=== PATIENT | male | born 1935 | race Caucasian/White ===

== ENCOUNTER 2017-03-31 07:26 | Day surgery (SDC) | payer OTHER, BC ==
[2017-03-30 12:22] VITALS: BMI 25.4
[2017-03-31] MEDS ORDERED: PROPOFOL 20 ML ONE ×2 (08:19)
[2017-03-31] MEDS ORDERED: SUCCINYLCHOLINE CHLORIDE 200 MG/10 ML VIAL ONE (08:19)
[2017-03-31] MEDS ORDERED: MIDAZOLAM HCL 2 MG/2 ML SINGLE DOSE VIAL ONE (08:19)
[2017-03-31] MEDS ORDERED: HEPARIN NA (PORCINE) 5,000 UNITS/ML 1ML VIAL ONE ×2 (08:48→10:07)
[2017-03-31] MEDS ORDERED: LIDOCAINE HCL 1%, 10 MG/ML (20ML VIAL) ONE (08:48)
[2017-03-31] MEDS ORDERED: ceFAZolin SODIUM 1 GM VIAL IVPB ONE (09:25)
[2017-03-31] MEDS ORDERED: LIDOCAINE HCL 1%, 10 MG/ML (20ML VIAL) IJ ONE (09:31)
[2017-03-31] MEDS ORDERED: LIDOCAINE HCL 2% (20ML MULTI-DOSE VIAL) NR ONE (09:44)
[2017-03-31] MEDS ORDERED: ePHEDrine SULFATE 50 MG/1 ML AMPULE ONE (09:44)
[2017-03-31] MEDS ORDERED: PHENYLEPHRINE HCL 10 MG/1 ML SINGLE DOSE VIAL ONE (09:44)
[2017-03-31] MEDS ORDERED: ONDANSETRON 4 MG/2 ML VIAL IVPUSH PRN (10:56)
[2017-03-31] MEDS ORDERED: ACETAMINOPHEN 500 MG TABLET (FP) PO PRN (10:56)
[2017-03-31] MEDS ORDERED: LACTATED RINGERS SOLUTION 1,000 ML IV SCH (11:00)
--- NOTE | 2017-03-31 11:13 | OP ---
Operative Note - Note: Operative Date: 03/31/17 Pre-Operative Diagnosis: LLE claudication Operation: Aortogram, CO2 angiogram, Left sfa, popliteal artery atherectomy with DCB angioplasty Findings: Distal SFA and popliteal artery 80% stenosis Post-Operative Diagnosis: Same as Pre-op Surgeon: Zack Howard Anesthesia: Fractional Estimated Blood Loss (mls): 50 Operative Report Dictated: Yes
--- NOTE | 2017-03-31 11:14 | HP ---
Admitting History and Physical - Admission Chief Complaint: Left lower extremity clauidication on treadmill - Smoking History Smoking history: Never smoked Have you smoked in the past 12 months: No Aproximately how many cigarettes per day: 0 If you are a former smoker, when did you quit?: 1971 - Alcohol/Substance Use Hx Alcohol Use: No Home Medications - Allergies Allergies/Adverse Reactions: Allergies Allergy/AdvReac Type Severity Reaction Status Date / Time ibuprofen [From Motrin] Allergy Severe Verified 03/31/17 08:24 - Home Medications Home Medications: Ambulatory Orders Aspirin Coated [Ecotrin -] 81 mg PO DAILY #0 tablet.ec 06/20/13 Clopidogrel Bisulfate [Plavix -] 75 mg PO DAILY #0 tablet 06/20/13 Enalapril Maleate [Vasotec -] 20 mg PO DAILY #30 tablet 06/20/13 Folic Acid - 1 mg PO DAILY #0 tablet 06/20/13 Hydrochlorothiazide [Hctz -] 25 mg PO DAILY #0 tablet 06/20/13 Rosuvastatin [Crestor -] 10 mg PO HS #30 tablet 06/20/13 Metoprolol Tartrate [Lopressor -] 50 mg PO DAILY 03/03/15 Repaglinide [Prandin] 0.5 mg PO DAILY 03/03/15 Glucosamine HCl/Chondro Borges A [Glucosamine Chondroitin Cap] 1 each PO DAILY 04/29 Ubidecarenone [Co Q10] 60 mg PO DAILY 04/29/15 Physical Examination Vital Signs: Vital Signs Temperature 97.8 F 03/31/17 08:23 Pulse Rate 63 03/31/17 08:23 Respiratory Rate 20 03/31/17 08:23 Blood Pressure 141/73 03/31/17 08:23 O2 Sat by Pulse Oximetry (%) 98 03/31/17 08:17 Constitutional: Yes: Well Nourished Eyes: Yes: WNL HENT: Yes: WNL Neck: Yes: WNL Cardiovascular: Yes: WNL Respiratory: Yes: WNL Gastrointestinal: Yes: WNL Musculoskeletal: Yes: WNL Extremities: Yes: WNL Assessment/Plan LLE claudication 1. For CO2 angiogram today
[2017-03-31] MEDS ORDERED: oxyCODONE HCL 5 MG TABLET ONE (12:25)
[2017-03-31] MEDS ORDERED: oxyCODONE HCL 5 MG TABLET PO PRN ×2 (12:50)
--- NOTE | 2017-03-31 12:52 | OP ---
DATE OF OPERATION: 03/31/2017 PREOPERATIVE DIAGNOSIS: Left lower extremity claudication. POSTOPERATIVE DIAGNOSIS: Left lower extremity claudication. PROCEDURE PERFORMED: Aortogram, CO2 angiogram left lower extremity, superficial femoral artery popliteal, orbital atherectomy with drug-coated balloon angioplasty. FINDINGS: 80% stenosis of the distal superficial femoral artery and popliteal artery. SURGEON: Zack Lrema MD ANESTHESIA: Fractional. ESTIMATED BLOOD LOSS: 50 mL. INDICATIONS: The patient is a 78-year-old male that has prior stent placement in the superficial femoral artery from the proximal to the mid to distal portion and now complains of some claudication while he is on the treadmill after 10 minutes. Preoperative ultrasound showed that he had distal superficial femoral artery stenosis in to the popliteal. The patient came into ambulatory surgery. The patient was consented for the procedure understanding to all risks, benefits and alternatives. PROCEDURE IN DETAIL: He was taken to the operating room and once in the operating room he was placed on the operating table in the supine manner. The right and left groin were prepped and draped in a sterile surgical manner. We then injected 10 mL of lidocaine over the right common femoral artery. We then took our micropuncture needle and punctured the right common femoral artery, micropuncture rods were inserted. A 0.035 floppy guidewire was placed a traditional fibrin sheath was placed. We then went ahead and placed the wire up into the aorta followed by Omni Flush catheter. We then selectively cannulated the left common iliac artery and were able to place the wire down to the left common femoral artery. followed. We then went ahead and did a CO2 angiogram of the left lower extremity showing that the superficial femoral artery was patent, the stents were patent, but in the popliteal artery there was an 80% stenosis. The patient had 2-vessel runoff into the foot. At this point we placed a 0.013 guidewire into the superficial femoral artery. We then took out the Omni Flush catheter. We then placed a 6 x 45 crossover sheath. Heparin 5000 units IV were administered. We then went ahead and placed our wire down into the tibial artery and exchanged it for a Viper wire. We then opened the CSI orbital atherectomy device and performed orbital atherectomy of the distal superficial femoral artery and the popliteal artery. Once completed we then went ahead and used a 5 x 6, 4 x 8, and another 5 x 4 drug-coated balloon and performed angioplasty of that segment. Completion angiogram now showed that the distal superficial femoral artery and popliteal artery were patent. The patient had 2-vessel runoff into the foot with a palpable pulse. At this point we brought our sheath up and over and a StarClose device was successfully deployed in the right common femoral artery. Pressure was held for 5 minutes and there was no bleeding. Areas were then dried and Dermabond was placed. The patient tolerated the procedure well with no complications. The patient was transferred to the PACU in stable condition. ZACK LERMA DO [id number]
[2017-03-31 15:35] VITALS: BP 155/73; PULSE 79; TEMP 97.6
== END 2017-03-31 15:39 | disposition home or self-care (01) ==
LOC: JASU-SURG 07:26
PROVIDERS: ATTEND Surgery Vascular Surgery
PROC: 047L3Z1 Dilation of Left Femoral Artery using Drug-Coated Balloon, Percutaneous Approach (ICD-10-PCS; 2017-03-31)
PROC: 047N3Z1 Dilation of Left Popliteal Artery using Drug-Coated Balloon, Percutaneous Approach (ICD-10-PCS; principal; 2017-03-31 09:00)
DX: I70.212 Atherosclerosis of native arteries of extremities with intermittent claudication, left leg (principal)
CPT/HCPCS: 37225; C2623; 76000-TC; 94760; J1644

== ENCOUNTER 2017-08-13 18:19 | Emergency (ER) | payer OTHER, BC ==
[2017-08-13 18:31] VITALS: BP 156/75; PULSE 67; TEMP 97.7; BMI 25.1
--- NOTE | 2017-08-13 19:12 | PDOC ---
History of Present Illness - General History Source: Patient Exam Limitations: No Limitations <Magdi Valdovinos - Last Filed: 08/13/17 21:20> <Michelle Walker - Last Filed: 08/14/17 03:35> - General Chief Complaint: Lightheaded Stated Complaint: LIGHTHEADED Time Seen by Provider: 08/13/17 18:33 - History of Present Illness Initial Comments: 08/13/17 19:51 The patient is a 82 year old male with a significant past medical history of diabetes, HTN, HLD, CVA, SC (1991) s/p stents (1998) who presents to the ED with complaints of lightheadedness for 2 days. The patient reports he was recently diagnosed with a right sided ear infection last week and was given ear drops that ran out on Tuesday. Patient states on Tuesday night he turned his head quickly and saw a flash of light for several seconds before residing. Since then patient reports intermittent lightheadedness that he describes as feeling off balance. He states his lightheadedness is worsened with laying down. He reports that is fearful of falling. Patient reports a slight episode of nausea on that has since resided. Patient states he has had similar symptoms several years for which he took meclizine with effective results. Denies chest pain, palpitations, or shortness of breath. Denies fever or chills. Denies dysuria or change in urinary output. Denies abdominal pain, vomiting, or diarrhea. Denies any other symptoms. (Magdi Valdovinos) Past History <Magdi Valdovinos - Last Filed: 08/13/17 21:20> - Past Medical History Anemia: No Asthma: No Cancer: Yes (SKIN) Cardiac Disorders: Yes CVA: No COPD: No CHF: No Dementia: No Diabetes: Yes ("PRE-DIABETIC") GI Disorders: No Disorders: No HTN: Yes Hypercholesterolemia: Yes Kidney Stones: Yes Liver Disease: No Seizures: No Thyroid Disease: No - Surgical History Abdominal Surgery: No Appendectomy: No Cardiac Surgery: Yes (ANGIOPLASTY 02/16/2012 WITH STENT PLACEMENTS) Cholecystectomy: No Lung Surgery: No Neurologic Surgery: No Orthopedic Surgery: No - Suicide/Smoking/Psychosocial Hx Smoking Status: Yes Smoking History: Never smoked Have you smoked in the past 12 months: No Number of Cigarettes Smoked Daily: 0 If you are a former smoker, when did you quit?: 1972 Hx Alcohol Use: No Drug/Substance Use Hx: No Substance Use Type: None Hx Substance Use Treatment: No <Michelle Walker - Last Filed: 08/14/17 03:35> - Past Medical History Allergies/Adverse Reactions: Allergies Allergy/AdvReac Type Severity Reaction Status Date / Time No Known Allergies Allergy Verified 08/13/17 18:25 Home Medications: Ambulatory Orders Aspirin Coated [Ecotrin -] 81 mg PO DAILY #0 tablet.ec 06/20/13 Clopidogrel Bisulfate [Plavix -] 75 mg PO DAILY #0 tablet 06/20/13 Enalapril Maleate [Vasotec -] 20 mg PO DAILY #30 tablet 06/20/13 Folic Acid - 1 mg PO DAILY #0 tablet 06/20/13 Hydrochlorothiazide [Hctz -] 25 mg PO DAILY #0 tablet 06/20/13 Rosuvastatin [Crestor -] 10 mg PO HS #30 tablet 06/20/13 Repaglinide [Prandin] 0.5 mg PO DAILY 03/03/15 Glucosamine HCl/Chondro Borges A [Glucosamine Chondroitin Cap] 1 each PO DAILY 04/29 Ubidecarenone [Co Q10] 60 mg PO DAILY 04/29/15 Allopurinol [Zyloprim -] 100 mg PO DAILY 08/13/17 Felodipine [Felodipine ER] 10 mg PO DAILY 08/13/17 Meclizine HCl [Antivert -] 25 mg PO TID PRN #21 tablet 08/13/17 Metoprolol Succinate [Toprol Xl] 50 mg PO DAILY 08/13/17 Sitagliptin Phosphate [Januvia] 50 mg PO DAILY 08/13/17 Cardiac Specific PMH - Complaint Specific PMHX Pacemaker: No <Michelle Walker - Last Filed: 08/14/17 03:35> Review of Systems - Review of Systems Able to Perform ROS?: Yes All Other Systems: Reviewed and Negative <Magdi Valdovinos - Last Filed: 08/13/17 21:20> <Michelle Walker - Last Filed: 08/14/17 03:35> - Review of Systems Comments:: 08/13/17 19:52 CONSTITUTIONAL: No reported: Fever, Chills, Diaphoresis, Generalized Weakness, Malaise, Loss of Appetite HEENT: No reported: Rhinorrhea, Nasal Congestion, Throat Pain, Throat Swelling, Difficulty Swallowing, Mouth Swelling, Ear Pain, Eye Pain, Visual Changes CARDIOVASCULAR: No reported: Chest Pain, Syncope, Palpitations, Irregular Heart Rate, Lightheadedness, Peripheral Edema RESPIRATORY: No reported: Cough, Shortness of Breath, SOB with Exertion, Orthopnea, Wheezing , Stridor, Hemoptysis GASTROINTESTINAL: + nausea No reported: Abdominal pain, Abdominal Distension, Vomiting, Diarrhea, Constipation, Melena, Hematochezia GENITOURINARY: No reported: Dysuria, Frequency, Urgency, Hesitancy, Flank Pain, Genital Pain MUSCULOSKELETAL: No reported: Myalgia, Arthralgia, Joint Swelling, Back pain, Neck Pain SKIN: No reported: Rash, Itching, Pallor HEMEATOLOGIC/IMMUNOLOGIC: No reported: Easy Bleeding, Easy Bruising, Lymphadenopathy, Frequent infections ENDOCRINE: No reported: Unexplained Weight Gain, Unexplained Weight Loss, Heat Intolerance , Cold Intolerance NEUROLOGIC: + lightheadedness No reported: Headache, Focal Weakness, Paresthesias, Vertigo, Seizure, Mental Status Changes, Incontinence PSYCHIATRIC: No reported: Anxiety, Depression (Magdi Valdovinos) *Physical Exam <Magdi Valdovinos - Last Filed: 08/13/17 21:20> <Michelle Walker - Last Filed: 08/14/17 03:35> - Vital Signs Last Vital Signs Temp Pulse Resp BP Pulse Ox 97.7 F 67 16 156/75 95 08/13/17 18:20 08/13/17 18:20 08/13/17 18:20 08/13/17 18:20 08/13/17 18:20 - Physical Exam Comments: 08/13/17 19:52 GENERAL: The patient is awake, alert, and fully oriented, Nontoxic - in no acute distress. HEAD: Normocephalic, atraumatic. EYES: extraocular movements intact, sclera anicteric, conjunctiva clear. ENT: + mildly edematous right external auditory canals with mild erythematous dull tympanic membrane, partially obscured cerumen. Left ear with normal canal and tympanic membrane. Normal voice, Moist mucous membranes. NECK: Normal range of motion, supple LUNGS: Breath sounds equal, clear to auscultation bilaterally. No wheezes, no rhonchi, no rales. HEART: + Partially irregular extrasystole, without murmur, rub or gallop. ABDOMEN: Soft, nontender, normoactive bowel sounds. No guarding, no rebound.No CVA tenderness EXTREMITIES: Normal range of motion, no edema. No clubbing or cyanosis. No cords, erythema, or tenderness. NEUROLOGICAL: + gait grossly intact with preexisting weakness of the left lower extremity and pre existing gait halt with ataxia. left upper extremity, motor strength. Negative Rombergs. No facial assymetry, Normal speech, PSYCH: Normal mood, normal affect. SKIN: Warm, Dry, normal turgor, (Magdi Valdovinos) ED Treatment Course - LABORATORY CBC & Chemistry Diagram: 08/13/17 19:40 08/13/17 19:40 <Magdi Valdovinos - Last Filed: 08/13/17 21:20> - LABORATORY CBC & Chemistry Diagram: 08/13/17 19:40 08/13/17 19:40 <Michelle Walker - Last Filed: 08/14/17 03:35> - ADDITIONAL ORDERS Additional order review: Laboratory Results 08/13/17 19:40 Sodium 136 Potassium 3.9 Chloride 102 Carbon Dioxide 26 Anion Gap 8 BUN 34 H Creatinine 2.0 H Creat Clearance w eGFR 32.31 Random Glucose 151 H D Calcium 9.8 Total Bilirubin 0.8 D AST 26 ALT 20 Alkaline Phosphatase 91 Creatine Kinase 86 Troponin I < 0.03 L Total Protein 7.4 Albumin 4.2 08/13/17 19:40 RBC 5.16 MCV 89.4 MCHC 33.5 RDW 14.7 MPV 7.9 D Neutrophils % 71.6 Lymphocytes % 16.9 Monocytes % 5.0 Eosinophils % 5.5 H Basophils % 1.0 - RADIOLOGY Radiology Studies Ordered: Category Date Time Status HEAD CT WITHOUT CONTRAST [CT] Stat CT Scan 08/13/17 19:38 Taken Radiograph Interpretation: 08/13/17 21:[address] Impression: the cerebral atrophy. Chronic microvascular ischemic changes are noted. Chronic lacunar infractions. No acute intracranial hemorrhage or acute infarction. the visualized aspect of the paranasal sinuses and mastoid air cells are unremarkable. No acute fracture. Reported by: Imaging database reporting consultant (Magdi Valdovinos) - Medications Given in the ED: ED Medications Discontinued Medications Generic Name Dose Route Start Last Admin Trade Name Jonny PRN Reason Stop Dose Admin Meclizine HCl 25 mg 08/13/17 21:48 08/13/17 21:54 Antivert - PO 08/13/17 21:49 25 mg ONCE ONE Administration Progress Note <Magdi Valdovinos - Last Filed: 08/13/17 21:20> <Michelle Walker - Last Filed: 08/14/17 03:35> - Progress Note Progress Note: Documentation has been prepared under my direction and personally reviewed by me in its entirety. I attest that this documented accurately reflects all work, treatment, procedures and medical decision making performed by me. (Michelle Walker) Medical Decision Making <Magdi Valdovinos - Last Filed: 08/13/17 21:20> <Michelle Walker - Last Filed: 08/14/17 03:35> - Medical Decision Making As noted above, this 82-year-old man with a history of hypertension/CVA/ coronary artery disease/peripheral vasculopathy presents history of lightheadedness with positional change. Patient states he has had this in the past and meclizine was effective medication to resolve the symptoms. Likewise, symptoms began after patient finished a course of eardrops for presumed ear infection a few days ago. Although the patient has underlying gait problems status post CVA, he feels that his gait may be changed in recent days. Physical exam as noted above. According to his , there is no difference in his halting gait from previously 12-lead electrocardiogram is performed, shows sinus rhythm with occasional PACs ; it is unchanged from EKG tracing dated 02/16/2012. No evidence of acute ST or T-wave abnormalities. Because of patient's extensive history of coronary/cerebrovascular and peripheral vasculopathy, noncontrast head CT was performed to evaluate for acute intracranial process. No evidence of acute CVA/bleed or other pathology evident. CBC/chemistry panel/cardiac profile were not significantly changed from similar lab work performed in the last few years. Clinical presentation most consistent with mild vertigo of peripheral origin. Meclizine 25 mg was administered and prescription for this medication transmitted to pharmacy. Patient should follow-up with his ear nose and throat doctor, Dr. Bowles within the next 3 days. He should return to the emergency room if he has severe, persistent symptoms (Michelle Walker) *DC/Admit/Observation/Transfer <Magdi Valdovinos - Last Filed: 08/13/17 21:20> <Michelle Walker - Last Filed: 08/14/17 03:35> Diagnosis at time of Disposition: Positional vertigo Qualifiers: Laterality: right Qualified Code(s): H81.11 - Benign paroxysmal vertigo, right ear - Discharge Dispostion Disposition: HOME Condition at time of disposition: Stable - Prescriptions Prescriptions: Meclizine HCl [Antivert -] 25 mg PO TID PRN #21 tablet PRN Reason: Vertigo - Referrals Referrals: Yesi Sim MD [Primary Care Provider] - Luis Bowles MD [Staff Physician] - 3 days - Patient Instructions Printed Discharge Instructions: DI for Benign Paroxysmal Positional Vertigo Additional Instructions: Antivert 25 mg up to 3 times a day as needed Continue other medications as prescribed Follow-up with Dr. Bowles within the next 3 days Return to ER if you have worsening of your symptoms - Post Discharge Activity - Attestations Scribe Attestion: 08/13/17 19:52 Documentation prepared by Magdi Valdovinos, acting as bacteriologist medical for Michelle Walker MD (Magdi Valdovinos)
[2017-08-13 20:01] LABS: EOSINOPHIL 5.5 % (0-4.5); MCHC 33.5 g/dl (32.0-35.9); MEAN CELL VOLUME 89.4 fl (80-96); MEAN PLT VOLUME 7.9 fl (7.5-11.1); NEUTROPHILS 71.6 % (42.8-82.8); PLATELET COUNT 239 K/MM3 (134-434); RDW 14.7 % (11.9-15.9); WHITE BLOOD COUNT 9.9 K/mm3 (4.0-10.8)
[2017-08-13 20:09] LABS: ALBUMIN 4.2 g/dl (3.5-5.0); ALK PHOS 91 U/L (32-92); ANION GAP 8 (8-16); BILIRUBIN,TOTAL 0.8 mg/dl (0.2-1.0); CALCIUM 9.8 mg/dl (8.4-10.2); CO2 26 mmol/L (22-28); CPK 86 IU/L (39-308); GLUCOSE,RANDOM 151 mg/dl (74-106); SGOT/AST 26 U/L (10-42); SGPT/ALT 20 U/L (10-40); TOT PROT 7.4 g/dl (6.4-8.3)
[2017-08-13 20:20] LABS: TROPONIN I (DFP) < 0.03 ng/ml (0.03-0.50)
[2017-08-13] MEDS ORDERED: MECLIZINE HCL 25 MG TABLET (FP) PO ONE (21:48)
[2017-08-13] MEDS ORDERED: MECLIZINE HCL 25 MG TABLET (FP) ONE (21:53)
--- NOTE | 2017-08-14 17:46 | EKG ---
Test Reason : Blood Pressure : / mmHG Vent. Rate : 067 BPM Atrial Rate : 067 BPM P-R Int : 186 ms QRS Dur : 088 ms QT Int : 404 ms P-R-T Axes : 052 010 048 degrees QTc Int : 426 ms SINUS RHYTHM WITH PREMATURE ATRIAL COMPLEXES NONSPECIFIC T WAVE ABNORMALITY WHEN COMPARED WITH ECG OF 16-FEB-2012 11:16, PREMATURE ATRIAL COMPLEXES ARE NOW PRESENT NONSPECIFIC T WAVE ABNORMALITY NOW EVIDENT IN INFERIOR LEADS NONSPECIFIC T WAVE ABNORMALITY NOW EVIDENT IN LATERAL LEADS Confirmed by MARCOS PHILLIPS MD ([id number]) on 08/14/2017 5:45:42 PM Referred By: Lauren CORONADO Confirmed By:MARCOS PHILLIPS MD
== END 2017-08-13 21:58 | disposition home or self-care (01) ==
LOC: FER 18:19 → SUPCPDRO 18:19 → FER 21:58
DX: H81.11 Benign paroxysmal vertigo, right ear (principal); I10 Essential (primary) hypertension; I25.2 Old myocardial infarction; E78.5 Hyperlipidemia, unspecified; R73.03 Prediabetes; Z95.5 Presence of coronary angioplasty implant and graft; Z86.73 Personal history of transient ischemic attack (TIA), and cerebral infarction without residual deficits; Z79.82 Long term (current) use of aspirin; Z85.828 Personal history of other malignant neoplasm of skin
CPT/HCPCS: 36415; 70450-TC; 80053; 82550; 84484; 85025; 93005; 99283-25

== ENCOUNTER 2020-05-08 04:38 | Day surgery (SDC) | payer OTHER, BC ==
[2020-05-07 14:07] VITALS: BMI 25.2
[2020-05-08 10:29] LABS: HEMATOCRIT 40.8 % (35.4-49); HEMOGLOBIN 13.3 GM/dL (11.7-16.9); MCH 29.9 pg (25.7-33.7); MCHC 32.5 g/dl (32.0-35.9); MEAN PLT VOLUME 8.1 fl (7.5-11.1); PLATELET COUNT 165 K/MM3 (134-434); RBC 4.44 M/mm3 (4.00-5.60); RDW 15.8 % (11.9-15.9); WHITE BLOOD COUNT 8.1 K/mm3 (4.0-10.0)
[2020-05-08 10:36] LABS: INR 0.93 (0.83-1.09)
[2020-05-08 10:54] LABS: ALBUMIN 3.8 g/dl (3.4-5.0); BILIRUBIN,TOTAL 0.6 mg/dL (0.2-1); BLOOD UREA NITROGEN 43.5 mg/dL (7-18); CALCIUM 9.1 mg/dL (8.5-10.1); CREATININE 2.2 mg/dL (0.55-1.3); POTASSIUM 4.2 mmol/L (3.5-5.1)
[2020-05-08] MEDS ORDERED: HEPARIN NA (PORCINE) 5,000 UNITS/ML 1ML VIAL ONE (14:02)
[2020-05-08] MEDS ORDERED: LIDOCAINE HCL 1%, 10 MG/ML (20ML VIAL) ONE (14:02)
--- NOTE | 2020-05-08 14:50 | HP ---
Admitting History and Physical - Admission Chief Complaint: left lower extremity claudication less than one block History Source: Patient Limitations to Obtaining History: No Limitations - Smoking History Smoking history: Former smoker Have you smoked in the past 12 months: No Aproximately how many cigarettes per day: 0 If you are a former smoker, when did you quit?: 1971 - Alcohol/Substance Use Hx Alcohol Use: No Home Medications - Allergies Allergies/Adverse Reactions: Allergies Allergy/AdvReac Type Severity Reaction Status Date / Time No Known Allergies Allergy Verified 05/08/20 10:50 - Home Medications Home Medications: Ambulatory Orders Aspirin Coated [Ecotrin -] 81 mg PO DAILY #0 tablet.ec 06/20/13 Clopidogrel Bisulfate [Plavix -] 75 mg PO DAILY #0 tablet 06/20/13 Folic Acid - 1 mg PO DAILY #0 tablet 06/20/13 Hydrochlorothiazide [Hctz -] 25 mg PO DAILY #0 tablet 06/20/13 Rosuvastatin [Crestor -] 10 mg PO HS #30 tablet 06/20/13 Glucosamine HCl/Chondro Borges A [Glucosamine Chondroitin Cap] 1 each PO DAILY 04/29/15 Ubidecarenone [Co Q10] 60 mg PO DAILY 04/29/15 Allopurinol [Zyloprim -] 100 mg PO DAILY 08/13/17 Felodipine [Felodipine ER] 10 mg PO DAILY 08/13/17 Metoprolol Succinate [Toprol Xl] 50 mg PO DAILY 08/13/17 Sitagliptin Phosphate [Januvia] 50 mg PO DAILY 08/13/17 Enalapril Maleate [Vasotec -] 20 mg PO DAILY 04/18/18 Pioglitazone HCl/Metformin HCl [Pioglitazone-Metformin 15-500] 1 each PO DAILY 05/07/20 Review of Systems - Review of Systems Constitutional: reports: No Symptoms Eyes: reports: No Symptoms HENT: reports: No Symptoms Neck: reports: No Symptoms Cardiovascular: reports: No Symptoms Respiratory: reports: No Symptoms Gastrointestinal: reports: No Symptoms Genitourinary: reports: No Symptoms Breasts: reports: No Symptoms Reported Musculoskeletal: reports: No Symptoms Integumentary: reports: No Symptoms Neurological: reports: No Symptoms Endocrine: reports: No Symptoms Hematology/Lymphatic: reports: No Symptoms Psychiatric: reports: No Symptoms Physical Examination Vital Signs: Vital Signs Temperature 97.1 F L 05/08/20 09:54 Pulse Rate 56 L 05/08/20 09:54 Respiratory Rate 20 05/08/20 09:54 Blood Pressure 145/50 L 05/08/20 09:54 O2 Sat by Pulse Oximetry (%) 99 05/08/20 09:54 Constitutional: Yes: Well Nourished, No Distress, Calm Eyes: Yes: WNL, Conjunctiva Clear, EOM Intact HENT: Yes: WNL, Atraumatic, Normocephalic Neck: Yes: WNL, Supple, Trachea Midline Cardiovascular: Yes: WNL, Regular Rate and Rhythm Respiratory: Yes: WNL, Regular, CTA Bilaterally Gastrointestinal: Yes: WNL, Normal Bowel Sounds Musculoskeletal: Yes: WNL Extremities: Yes: WNL Edema: No Peripheral Pulses WNL: No Integumentary: Yes: WNL Neurological: Yes: WNL, Alert, Oriented ...Motor Strength: WNL Psychiatric: Yes: WNL Labs: CBC, BMP 05/08/20 09:35 05/08/20 09:35 Problem List - Problems (1) Claudication of left lower extremity Assessment/Plan: for left lower extremity angiogram today Zack Howard DO Code(s): I73.9 - PERIPHERAL VASCULAR DISEASE, UNSPECIFIED
[2020-05-08] MEDS ORDERED: MIDAZOLAM HCL 2 MG/2 ML SINGLE DOSE VIAL ONE (14:53)
[2020-05-08] MEDS ORDERED: ceFAZolin SODIUM 1 GM VIAL IVPB ONE (15:15)
[2020-05-08] MEDS ORDERED: LIDOCAINE HCL 1%, 10 MG/ML (20ML VIAL) NR ONE (15:32)
--- NOTE | 2020-05-08 16:39 | OP ---
Operative Note - Note: Operative Date: 05/08/20 Pre-Operative Diagnosis: Left lower extremity claudication Operation: CO2 Aortogram, LLE angiogram, SFA angioplasty, Posterior tibial artery angioplasty Findings: SFA stent stenosis PT stenosis Post-Operative Diagnosis: Same as Pre-op Surgeon: Zack Howard Anesthesia: MAC Estimated Blood Loss (mls): 50
[2020-05-08] MEDS ORDERED: CLOPIDOGREL BISULFATE 75 MG TABLET (FP) PO ONE (16:42)
[2020-05-08] MEDS ORDERED: CLOPIDOGREL BISULFATE 75 MG TABLET (FP) ONE (16:43)
[2020-05-08] MEDS ORDERED: oxyCODONE HCL 5 MG TABLET ONE (17:30)
[2020-05-08] MEDS ORDERED: oxyCODONE HCL 5 MG TABLET PO ONE (17:32)
[2020-05-08 19:34] VITALS: BP 135/65; PULSE 61; TEMP 97.3
--- NOTE | 2020-05-20 10:20 | OP ---
DATE OF OPERATION: 05/08/2020 PREOPERATIVE DIAGNOSIS: Left lower extremity claudication. POSTOPERATIVE DIAGNOSIS: Left lower extremity claudication. PROCEDURE: CO2 aortogram, left lower extremity angiogram, superficial femoral artery angioplasty, posterior tibial artery angioplasty. FINDINGS: SFA stent stenosis, posterior tibial artery stenosis. SURGEON: Zack Lerma DO ANESTHESIA: MAC. BLOOD LOSS: 50 mL Patient is an 84-year-old that has less than 1 block claudication. On his preoperative ultrasound it showed that his stent is 80% to 90% stenosed and he also has some tibial disease. Patient was cleared by medicine and cardiology. Patient was found to be COVID-19 negative. Patient then came into ambulatory surgery. Patient was consented for the procedure understanding all risks, benefits and alternatives, was then brought to the operating room. Once in the operating room he was laid on the operating table in the supine manner and the area of the right and left groin was prepped and draped in a sterile surgical manner. We then injected 10 mL of lidocaine 1% over the right common femoral artery. We then placed used a micropuncture needle and punctured the artery. Micropuncture wire was inserted. Micropuncture sheath was inserted and a traditional 5-[place] sheath was placed. We then placed a 0.035 floppy guidewire up into the aorta followed by Omni Flush catheter. We then shot an aortogram by hand injection showing that the aorta and the iliac arteries were without any disease. We then used our 0.035 floppy guidewire, went up and over to the left common femoral artery and our Omni Flush catheter followed. We then shot an angiogram of the left lower extremity by hand injection showing that the common femoral artery, the profunda and the proximal SFA were patent, but the distal SFA with a stent had an 80% to 90% stenosis and below the knee the posterior tibial artery had a 70% to 80% stenosis. All of these images were done with CO2 as a CO2 angiogram was done. We then went ahead and placed a 0.035 stiff guidewire into the SFA, removed our Omni Flush catheter and placed a 6 x 45 Crossover sheath. Heparin 5000 units were administered. We then went ahead and used our 0.035 floppy guidewire and brought it down to the stent and using a Quick-Cross catheter we were able to cross our stents and place our wire into the posterior tibial artery. At this point we then went ahead and used a 6 x 10 Ultraverse balloon and performed angioplasty of the SFA stent. Completion angiogram now showed that the SFA stent was patent. We then went ahead and exchanged our wire for a Epic Director wire and using a 2.5 x 8 Ultraverse balloon, which was a 0.014 balloon, we were able to perform angioplasty of the posterior tibial artery. Completion angiogram now showed that the SFA stent was patent, the posterior tibial artery was patent and there was good brisk flow into the foot. At this point we brought our sheath up and over. StarClose device was successfully deployed in the right common femoral artery. Pressure was held for 5 minutes after which there was no more bleeding. The area was wet and dried and Dermabond was placed. Patient tolerated the procedure with no complications. Patient transferred to PACU in stable condition. ZACK LERMA DO [id number]
== END 2020-05-08 19:30 | disposition home or self-care (01) ==
LOC: JASU-SURG 04:38
PROVIDERS: ATTEND Surgery Vascular Surgery
PROC: 047S3ZZ Dilation of Left Posterior Tibial Artery, Percutaneous Approach (ICD-10-PCS; 2020-05-08)
PROC: 047L3ZZ Dilation of Left Femoral Artery, Percutaneous Approach (ICD-10-PCS; principal; 2020-05-08 14:00)
DX: I70.212 Atherosclerosis of native arteries of extremities with intermittent claudication, left leg (principal); E11.9 Type 2 diabetes mellitus without complications; Z79.4 Long term (current) use of insulin; I25.10 Atherosclerotic heart disease of native coronary artery without angina pectoris
CPT/HCPCS: 37224; 37228; C1725; 36415; 76000-TC-FY; 80053; 85027; 85610; 94760; J1644

== ENCOUNTER 2020-08-16 07:23 | Inpatient (IN) | payer OTHER, BC ==
[2020-08-16 07:37] VITALS: BMI 22.9
[2020-08-16 08:30] LABS: HEMATOCRIT 45.6 % (35.4-49); HEMOGLOBIN 14.9 GM/dl (11.7-16.9); MCH 30.8 pg (25.7-33.7); MCHC 32.7 g/dl (32.0-35.9); MEAN CELL VOLUME 94.3 fl (80-96); MEAN PLT VOLUME 8.8 fl (7.5-11.1); PLATELET COUNT 179 K/MM3 (134-434); RBC 4.84 M/mm3 (4.00-5.60); RDW 15.7 % (11.9-15.9); WHITE BLOOD COUNT 14.4 K/mm3 (4.0-10.8)
[2020-08-16 08:36] LABS: INR 1.07 (0.82-1.09); PROTHROMBIN TIME (PATIENT) 11.9 SEC (10.2-13.0)
[2020-08-16 08:38] LABS: ALBUMIN 3.4 g/dl (3.4-5.0); BILIRUBIN,TOTAL 1.1 mg/dl (0.2-1); CALCIUM 8.8 mg/dl (8.5-10); CREATININE 1.7 mg/dl (0.55-1.3); POTASSIUM 3.8 mmol/L (3.5-5.1); TOT PROT 6.2 g/dl (6.4-8.2)
[2020-08-16] MEDS ORDERED: ENALAPRIL MALEATE 10 MG TABLET PO ONE (08:41)
[2020-08-16] MEDS ORDERED: SODIUM CHLORIDE 1,000 ML IV SCH ×2 (08:45→22:00)
[2020-08-16] MEDS ORDERED: ASPIRIN 81 MG CHEWABLE TABLETS PO ONE (09:03)
[2020-08-16] MEDS ORDERED: POTASSIUM CHLORIDE TABS 10 MEQ TABLET.ER (FP) PO ONE (09:08)
[2020-08-16] MEDS ORDERED: POTASSIUM CHLORIDE ORAL LIQUID 20 MEQ/15 ML PO ONE (09:09)
[2020-08-16] MEDS ORDERED: ATORVASTATIN CA 80 MG TABLET (FP) PO ONE (09:09)
[2020-08-16] MEDS ORDERED: CLOPIDOGREL BISULFATE 300 MG TABLET PO ONE (09:09)
[2020-08-16] MEDS ORDERED: ATORVASTATIN CA 80 MG TABLET (FP) ONE (09:16)
[2020-08-16] MEDS ORDERED: CLOPIDOGREL BISULFATE 300 MG TABLET ONE (09:17)
[2020-08-16 09:32] LABS: PLATELET ESTIMATE ADEQUATE
[2020-08-16] MEDS ORDERED: NITROGLYCERIN 2% OINTMENT - 1GM PACKET TD STA (09:39)
[2020-08-16] MEDS ORDERED: MAGNESIUM 1GM/D5W - 1 GM/100 ML IVPB IVPB ONE (09:41)
[2020-08-16] MEDS ORDERED: NITROGLYCERIN 2% OINTMENT - 1GM PACKET TD ONE (09:41)
[2020-08-16 15:43] LABS: EPITHELIAL CELLS RARE /hpf
[2020-08-16] MEDS ORDERED: LABETALOL HCL 5 MG/1 ML (100MG/20 ML VIAL) IVPUSH ONE (19:17)
[2020-08-16] MEDS: INSULIN SLIDING SCALE (NOVOLOG) 1 VIAL SQ SCH (22:25)
[2020-08-16 22:47] LABS: BASO % 0.7 % (0-2.0); EOS % 0.5 % (0-4.5); HEMATOCRIT 39.3 % (35.4-49); HEMOGLOBIN 12.8 GM/dL (11.7-16.9); LYMPH % 9.5 % (8-40); MCH 30.3 pg (25.7-33.7); MCHC 32.6 g/dl (32.0-35.9); MEAN CELL VOLUME 92.9 fl (80-96); MEAN PLT VOLUME 8.4 fl (7.5-11.1); MONO % 7.1 % (3.8-10.2); NEUT % 82.2 % (42.8-82.8); PLATELET COUNT 155 K/MM3 (134-434); RBC 4.24 M/mm3 (4.00-5.60); WHITE BLOOD COUNT 10.4 K/mm3 (4.0-10.0)
[2020-08-17] MEDS ORDERED: MELATONIN 5 MG TABLETS PO ONE (00:43)
[2020-08-17] MEDS: INSULIN SLIDING SCALE (NOVOLOG) 1 VIAL SQ SCH ×4 (06:29→21:33)
[2020-08-17] MEDS: HEPARIN NA (PORCINE) 5,000 UNITS/ML 1ML VIAL SQ SCH ×3 (06:39→21:32)
[2020-08-17] MEDS ORDERED: LABETALOL HCL 5 MG/1 ML (100MG/20 ML VIAL) IVPUSH ONE (06:45)
[2020-08-17 07:18] LABS: BASO % 0.7 % (0-2.0); EOS % 2.2 % (0-4.5); HEMATOCRIT 39.4 % (35.4-49); LYMPH % 13.1 % (8-40); MCH 30.5 pg (25.7-33.7); MEAN CELL VOLUME 92.5 fl (80-96); MEAN PLT VOLUME 8.3 fl (7.5-11.1); MONO % 8.4 % (3.8-10.2); NEUT % 75.6 % (42.8-82.8); PLATELET COUNT 145 K/MM3 (134-434); RBC 4.26 M/mm3 (4.00-5.60); RDW 16.5 % (11.9-15.9); WHITE BLOOD COUNT 9.1 K/mm3 (4.0-10.0)
[2020-08-17 07:38] LABS: POTASSIUM 3.9 mmol/L (3.5-5.1)
[2020-08-17 07:41] LABS: ALBUMIN 2.6 g/dl (3.4-5.0); CALCIUM 8.2 mg/dL (8.5-10.1)
[2020-08-17 07:45] LABS: CREATININE 1.6 mg/dL (0.55-1.3); PHOSPHOROUS 2.1 mg/dL (2.5-4.9)
[2020-08-17 07:46] LABS: BILIRUBIN,TOTAL 1.2 mg/dL (0.2-1)
[2020-08-17 07:48] LABS: CHOLESTEROL 113 mg/dL (50-200); TOT PROT 5.3 g/dl (6.4-8.2)
[2020-08-17 07:49] LABS: TRIGLYCERIDES 99 mg/dL (0-150)
[2020-08-17 07:50] LABS: LDL CHOLESTEROL (ONLY SJRH) 61 mg/dL (5-100)
[2020-08-17 07:51] LABS: HDL CHOLESTEROL 45 mg/dL (40-60)
[2020-08-17] MEDS ORDERED: MAGNESIUM SULF 50% (8.12 MEQ/2 ML-1 GM VIAL) IVPB ONE (08:49)
[2020-08-17] MEDS ORDERED: MAGNESIUM 1GM/D5W - 1 GM/100 ML IVPB IVPB ONE (09:00)
[2020-08-17] MEDS ORDERED: SODIUM PHOSPHATE - 10 MM in SODIUM CHLORIDE 250 ML IVPB ONE (09:00)
[2020-08-17] MEDS: ENALAPRIL MALEATE 10 MG TABLET PO SCH (09:29)
[2020-08-17] MEDS: ASPIRIN 81 MG CHEWABLE TABLETS PO SCH (09:29)
[2020-08-17] MEDS: CLOPIDOGREL BISULFATE 75 MG TABLET (FP) PO SCH (09:29)
[2020-08-17] MEDS: ALLOPURINOL 300 MG TABLET (FP) PO SCH (09:29)
[2020-08-18] MEDS: INSULIN SLIDING SCALE (NOVOLOG) 1 VIAL SQ SCH ×4 (06:19→21:55)
[2020-08-18] MEDS: ENALAPRIL MALEATE 10 MG TABLET PO SCH ×2 (06:20→09:17)
[2020-08-18] MEDS: HEPARIN NA (PORCINE) 5,000 UNITS/ML 1ML VIAL SQ SCH ×3 (06:20→21:54)
[2020-08-18 07:36] LABS: EOS % 4.7 % (0-4.5); HEMATOCRIT 41.8 % (35.4-49); HEMOGLOBIN 13.6 GM/dL (11.7-16.9); LYMPH % 15.9 % (8-40); MCH 29.7 pg (25.7-33.7); MCHC 32.6 g/dl (32.0-35.9); MEAN CELL VOLUME 91.3 fl (80-96); MEAN PLT VOLUME 8.6 fl (7.5-11.1); MONO % 8.4 % (3.8-10.2); PLATELET COUNT 166 K/MM3 (134-434); RBC 4.58 M/mm3 (4.00-5.60); RDW 16.3 % (11.9-15.9); WHITE BLOOD COUNT 9.1 K/mm3 (4.0-10.0)
[2020-08-18 07:55] LABS: POTASSIUM 4.2 mmol/L (3.5-5.1)
[2020-08-18 07:57] LABS: ALBUMIN 2.8 g/dl (3.4-5.0); BLOOD UREA NITROGEN 27.6 mg/dL (7-18); CALCIUM 8.9 mg/dL (8.5-10.1)
[2020-08-18 08:01] LABS: CREATININE 1.8 mg/dL (0.55-1.3); PHOSPHOROUS 2.3 mg/dL (2.5-4.9)
[2020-08-18 08:02] LABS: BILIRUBIN,TOTAL 0.8 mg/dL (0.2-1)
[2020-08-18] MEDS ORDERED: SODIUM PHOSPHATE - 0 MM in SODIUM CHLORIDE 250 ML IVPB ONE (08:20)
[2020-08-18] MEDS ORDERED: metoPROLOL SUCCINATE 25 MG TAB.SR.24H (FP) PO ONE (08:45)
[2020-08-18] MEDS: ASPIRIN 81 MG CHEWABLE TABLETS PO SCH (09:16)
[2020-08-18] MEDS: CLOPIDOGREL BISULFATE 75 MG TABLET (FP) PO SCH (09:17)
[2020-08-18] MEDS: ALLOPURINOL 300 MG TABLET (FP) PO SCH (09:17)
[2020-08-18] MEDS ORDERED: SODIUM PHOSPHATE - 10 MM in SODIUM CHLORIDE 250 ML IVPB ONE (09:30)
[2020-08-18] MEDS ORDERED: amLODIPine BESYLATE 5 MG TABLET (FP) PO ONE (14:21)
[2020-08-18] MEDS: metoPROLOL SUCCINATE 25 MG TAB.SR.24H (FP) PO SCH (21:54)
[2020-08-19] MEDS: INSULIN SLIDING SCALE (NOVOLOG) 1 VIAL SQ SCH ×4 (06:00→22:09)
[2020-08-19] MEDS: HEPARIN NA (PORCINE) 5,000 UNITS/ML 1ML VIAL SQ SCH ×3 (06:02→21:53)
[2020-08-19 07:21] LABS: BASO % 1.1 % (0-2.0); EOS % 6.4 % (0-4.5); HEMATOCRIT 39.6 % (35.4-49); HEMOGLOBIN 13.2 GM/dL (11.7-16.9); MCH 30.3 pg (25.7-33.7); MCHC 33.3 g/dl (32.0-35.9); MEAN CELL VOLUME 90.7 fl (80-96); MEAN PLT VOLUME 8.5 fl (7.5-11.1); MONO % 7.7 % (3.8-10.2); NEUT % 66.8 % (42.8-82.8); PLATELET COUNT 166 K/MM3 (134-434); RBC 4.36 M/mm3 (4.00-5.60); RDW 16.2 % (11.9-15.9); WHITE BLOOD COUNT 8.1 K/mm3 (4.0-10.0)
[2020-08-19 07:25] LABS: POTASSIUM 3.7 mmol/L (3.5-5.1)
[2020-08-19 07:31] LABS: ALBUMIN 2.5 g/dl (3.4-5.0); CALCIUM 8.4 mg/dL (8.5-10.1)
[2020-08-19 07:32] LABS: MAGNESIUM 1.7 mg/dL (1.8-2.4)
[2020-08-19 07:35] LABS: PHOSPHOROUS 3.3 mg/dL (2.5-4.9)
[2020-08-19 07:36] LABS: BILIRUBIN,TOTAL 0.7 mg/dL (0.2-1); CREATININE 1.7 mg/dL (0.55-1.3); TOT PROT 5.3 g/dl (6.4-8.2)
[2020-08-19] MEDS ORDERED: MAGNESIUM SULF 50% (8.12 MEQ/2 ML-1 GM VIAL) IVPB ONE (08:28)
[2020-08-19] MEDS: MAGNESIUM OXIDE 400 MG TABLET (FP) PO SCH ×3 (08:55→21:53)
[2020-08-19] MEDS: KCL 10 MEQ IVPB 10 MEQ/100 ML INFUS.BAG IVPB SCH ×3 (08:56→14:23)
[2020-08-19] MEDS: amLODIPine BESYLATE 5 MG TABLET (FP) PO SCH ×3 (08:57→16:38)
[2020-08-19] MEDS ORDERED: REGADENOSON 0.4 MG/5 ML PRE-FILLED SYRINGE IVPUSH ONE ×2 (09:00→12:02)
[2020-08-19] MEDS: ENALAPRIL MALEATE 10 MG TABLET PO SCH ×2 (09:02→16:56)
[2020-08-19] MEDS: metoPROLOL SUCCINATE 25 MG TAB.SR.24H (FP) PO SCH ×2 (09:03→21:53)
[2020-08-19] MEDS: CLOPIDOGREL BISULFATE 75 MG TABLET (FP) PO SCH (11:10)
[2020-08-19] MEDS: ASPIRIN 81 MG CHEWABLE TABLETS PO SCH (11:10)
[2020-08-19] MEDS: ALLOPURINOL 300 MG TABLET (FP) PO SCH (11:11)
[2020-08-19] MEDS ORDERED: ENALAPRIL MALEATE 10 MG TABLET PO ONE (14:45)
[2020-08-19] MEDS ORDERED: amLODIPine BESYLATE 5 MG TABLET (FP) PO ONE (16:29)
[2020-08-20] MEDS: INSULIN SLIDING SCALE (NOVOLOG) 1 VIAL SQ SCH ×2 (06:05→12:17)
[2020-08-20] MEDS: HEPARIN NA (PORCINE) 5,000 UNITS/ML 1ML VIAL SQ SCH (06:15)
[2020-08-20] MEDS ORDERED: amLODIPine BESYLATE 10 MG TABLET (FP) PO SCH (07:29)
[2020-08-20 08:07] VITALS: BP 164/72; PULSE 63; TEMP 97.9
[2020-08-20] MEDS ORDERED: TAMSULOSIN HCL 0.4 MG CAP PO SCH (08:30)
[2020-08-20] MEDS: metoPROLOL SUCCINATE 25 MG TAB.SR.24H (FP) PO SCH (09:15)
[2020-08-20] MEDS: ASPIRIN 81 MG CHEWABLE TABLETS PO SCH (09:15)
[2020-08-20] MEDS: MAGNESIUM OXIDE 400 MG TABLET (FP) PO SCH (09:15)
[2020-08-20] MEDS: ALLOPURINOL 300 MG TABLET (FP) PO SCH (09:15)
[2020-08-20] MEDS: CLOPIDOGREL BISULFATE 75 MG TABLET (FP) PO SCH (09:15)
[2020-08-20] MEDS ORDERED: ENALAPRIL MALEATE 10 MG TABLET PO SCH (10:00)
[2020-08-20] MEDS ORDERED: ATORVASTATIN CA 10 MG TABLET (FP) PO SCH (22:00)
== END 2020-08-20 14:25 | disposition home health service (06) | DRG 281 ==
LOC: FER 07:23 → J4W 17:00
PROVIDERS: ADMIT Internal Medicine; ATTEND Internal Medicine
DX: I21.4 Non-ST elevation (NSTEMI) myocardial infarction (principal); I16.1 Hypertensive emergency; I69.359 Hemiplegia and hemiparesis following cerebral infarction affecting unspecified side; D72.829 Elevated white blood cell count, unspecified; I13.10 Hypertensive heart and chronic kidney disease without heart failure, with stage 1 through stage 4 chronic kidney disease, or unspecified chronic kidney disease; N18.9 Chronic kidney disease, unspecified; W19.XXXA Unspecified fall, initial encounter; I73.9 Peripheral vascular disease, unspecified; N26.1 Atrophy of kidney (terminal); N28.1 Cyst of kidney, acquired; N28.82 Megaloureter; R33.9 Retention of urine, unspecified; E11.9 Type 2 diabetes mellitus without complications; I69.334 Monoplegia of upper limb following cerebral infarction affecting left non-dominant side
CPT/HCPCS: 36415; 70450-TC; 71045-TC-FY; 76775-TC; 76856-TC; 78452-TC; 80053; 80061; 81003; 81015; 82550; 82962; 83036; 83721; 83735; 84100; 84443; 84484; 85025; 85610; 87086; 93005; 93010; 93017; 93306-TC; 93880-TC; 97116-GP; 97161-GP; 99291; 99292; A9502; C9803; J1644; J2785; U0003

== ENCOUNTER 2021-03-02 04:24 | Day surgery (SDC) | payer OTHER, BC ==
[2021-02-27 14:37] VITALS: BMI 22.9
[~2021-03-02 04:24] MED LIST: LIDOCAINE HCL 1%, 10 MG/ML (20ML VIAL) PNB ONE
[2021-03-02] MEDS ORDERED: ONDANSETRON 4 MG/2 ML VIAL IVPUSH PRN (14:41)
[2021-03-02] MEDS ORDERED: oxyCODONE HCL 5 MG TABLET PO PRN (14:41)
[2021-03-02] MEDS ORDERED: PROPOFOL 20 ML ONE ×2 (14:55→15:26)
[2021-03-02] MEDS ORDERED: ceFAZolin SODIUM 1 GM VIAL IVPB ONE (15:00)
[2021-03-02] MEDS ORDERED: ceFAZolin SODIUM 1 GM VIAL ONE (15:05)
[2021-03-02] MEDS ORDERED: LIDOCAINE HCL/PF 2% SDV 5ML VIAL ONE (15:07)
[2021-03-02] MEDS ORDERED: LIDOCAINE HCL 1%, 10 MG/ML (20ML VIAL) PNB ONE (15:09)
[2021-03-02] MEDS ORDERED: DEXAMETHASONE SOD PHOSPHATE 4 MG/1 ML VIAL ONE (15:11)
[2021-03-02] MEDS ORDERED: HEPARIN NA (PORCINE) 5,000 UNITS/ML 1ML VIAL ONE (15:26)
[2021-03-02 19:09] VITALS: BP 173/78; PULSE 67; TEMP 96.9
== END 2021-03-02 18:50 | disposition home or self-care (01) ==
LOC: JASU-SURG 04:24
PROVIDERS: ATTEND Surgery Vascular Surgery
PROC: 047L3ZZ Dilation of Left Femoral Artery, Percutaneous Approach (ICD-10-PCS; principal; 2021-03-02 15:09)
DX: I70.212 Atherosclerosis of native arteries of extremities with intermittent claudication, left leg (principal); E11.9 Type 2 diabetes mellitus without complications; I10 Essential (primary) hypertension; Z79.84 Long term (current) use of oral hypoglycemic drugs; Z72.0 Tobacco use
CPT/HCPCS: 37225; C1885; 76000-TC-FY; 82962; 86850; 86900; 86901; 94760; J1644

== ENCOUNTER 2022-01-08 11:50 | Observation (INO) | payer OTHER, BC ==
[2022-01-08] MEDS ORDERED: MECLIZINE HCL 25 MG TABLET (FP) PO ONE (12:30)
[2022-01-08] MEDS ORDERED: ONDANSETRON 4 MG/2 ML VIAL IVPUSH ONE (12:30)
[2022-01-08] MEDS ORDERED: SODIUM CHLORIDE 0.9% 1000 ML INFUS.BAG IV ONE (12:30)
[2022-01-08] MEDS ORDERED: ONDANSETRON 4 MG/2 ML VIAL ONE (12:45)
[2022-01-08] MEDS ORDERED: MECLIZINE HCL 25 MG TABLET (FP) ONE (12:45)
[2022-01-08 13:39] LABS: HEMATOCRIT 49.6 % (35.4-49); MCH 30.8 pg (25.7-33.7); MCHC 34.3 g/dl (32.0-35.9); MEAN CELL VOLUME 89.8 fl (80-96); MEAN PLT VOLUME 7.4 fl (7.5-11.1); PLATELET COUNT 177.6 10^3/uL (134-434); RBC 5.52 10^6/uL (4.00-5.60); RDW 14.6 % (11.9-15.9); WHITE BLOOD COUNT 9.1 10^3/uL (4.0-10.8)
[2022-01-08 13:49] LABS: ALBUMIN 3.8 g/dl (3.4-5.0); BILIRUBIN,TOTAL 1.2 mg/dl (0.2-1); CALCIUM 9.9 mg/dl (8.5-10); CREATININE 1.9 mg/dl (0.55-1.3); PHOSPHOROUS 3.5 mg/dl (2.5-4.9); TOT PROT 7.2 g/dl (6.4-8.2)
[2022-01-08 14:18] LABS: ANISOCYTOSIS 1+; PLATELET ESTIMATE ADEQUATE
[2022-01-08] MEDS ORDERED: CEFTRIAXONE 1,000 MG in DEXTROSE 5%-WATER - 50 ML IVPB ONE (17:23)
[2022-01-08] MEDS ORDERED: AZITHROMYCIN IVPB 500 MG in DEXTROSE 5%-WATER - 250 ML IVPB ONE (17:24)
[2022-01-08] MEDS ORDERED: cefTRIAXone SODIUM 1 GM VIAL ONE (17:32)
[2022-01-08] MEDS ORDERED: AZITHROMYCIN 500 MG VIAL IVPB ONE (17:32)
[2022-01-08] MEDS ORDERED: MECLIZINE HCL 12.5 MG TABLET PO PRN (18:10)
[2022-01-08 18:17] LABS: EPITHELIAL CELLS FEW /hpf
[2022-01-08 20:34] VITALS: BMI 22.2
[2022-01-08] MEDS ORDERED: ASPIRIN COATED 81 MG TABLET.EC PO SCH (22:00)
[2022-01-08] MEDS ORDERED: ROSUVASTATIN CA 10 MG TABLET PO SCH (22:00)
[2022-01-08] MEDS: RIVAROXABAN 2.5 MG TABLET PO SCH (22:36)
[2022-01-09 04:21] VITALS: BP 145/53; PULSE 58; TEMP 98.6
[2022-01-09] MEDS ORDERED: TAMSULOSIN HCL 0.4 MG CAP PO SCH (08:30)
[2022-01-09] MEDS: RIVAROXABAN 2.5 MG TABLET PO SCH (09:49)
[2022-01-09] MEDS ORDERED: CHOLECALCIFEROL (VIT D3) 1,000 UNIT (25 MCG) TABLET PO SCH (10:00)
[2022-01-09] MEDS ORDERED: POLYETHYLENE GLYCOL 3350 119 GM BTL PO SCH (10:00)
[2022-01-09] MEDS ORDERED: amLODIPine BESYLATE 10 MG TABLET (FP) PO SCH (10:00)
== END 2022-01-09 12:51 | disposition home or self-care (01) ==
LOC: SUPCPDRO 11:50 → FER 11:50 → FM/S 16:52 → INTOOBSV 16:52 → UNDOADMOB 16:52 → FM/S 20:30
PROVIDERS: ADMIT Hospitalist; ATTEND Nurse Practitioner Acute Care
PROC: 3E03329 Introduction of Other Anti-infective into Peripheral Vein, Percutaneous Approach (ICD-10-PCS; principal; 2022-01-09)
PROC: 3E033GC Introduction of Other Therapeutic Substance into Peripheral Vein, Percutaneous Approach (ICD-10-PCS; 2022-01-09)
PROC: 3E0337Z Introduction of Electrolytic and Water Balance Substance into Peripheral Vein, Percutaneous Approach (ICD-10-PCS; 2022-01-09)
DX: I13.10 Hypertensive heart and chronic kidney disease without heart failure, with stage 1 through stage 4 chronic kidney disease, or unspecified chronic kidney disease (principal); H81.10 Benign paroxysmal vertigo, unspecified ear; J18.9 Pneumonia, unspecified organism; I69.354 Hemiplegia and hemiparesis following cerebral infarction affecting left non-dominant side; I25.10 Atherosclerotic heart disease of native coronary artery without angina pectoris; I25.2 Old myocardial infarction; E78.5 Hyperlipidemia, unspecified; I73.9 Peripheral vascular disease, unspecified; E11.22 Type 2 diabetes mellitus with diabetic chronic kidney disease; Z86.39 Personal history of other endocrine, nutritional and metabolic disease; Z86.79 Personal history of other diseases of the circulatory system; Z88.6 Allergy status to analgesic agent
CPT/HCPCS: 36415; 70450-TC; 71045-TC-FY; 74176-TC; 80053; 81003; 81015; 82306; 82570; 83690; 83835; 83970; 84100; 84156; 84550; 85027; 87040; 87086; 93005; 93010; 96365; 96367; 96375; 99285-25; C9803-CS; G0378; U0003; U0005

== ENCOUNTER 2023-08-09 13:06 | Inpatient (IN) | payer OTHER, BC ==
[2023-08-09 14:16] LABS: INR 1.46 (0.83-1.09); PROTHROMBIN TIME (PATIENT) 16.9 SEC (9.7-13.0)
[2023-08-09 14:18] LABS: ACTIVATED PTT 36.7 SECONDS (25.2-36.5)
[2023-08-09 14:25] LABS: HEMOGLOBIN 11.9 G/dL (11.7-16.9); MCH 27.7 pg (25.7-33.7); MCHC 31.3 g/dl (32.0-35.9); MEAN CELL VOLUME 88.5 fl (80-96); MEAN PLT VOLUME 7.7 fl (7.5-11.1); PLATELET COUNT 251.8 10^3/uL (134-434); RBC 4.29 10^6/uL (4.00-5.60); RDW 17.2 % (11.9-15.9); WHITE BLOOD COUNT 6.9 10^3/uL (4.0-10.8)
[2023-08-09 14:36] LABS: ALBUMIN 3.1 g/dl (3.4-5.0); BILIRUBIN,TOTAL 0.6 mg/dl (0.2-1); CALCIUM 8.8 mg/dl (8.5-10.1); CREATININE 1.3 mg/dl (0.6-1.3); POTASSIUM 3.9 mmol/L (3.5-5.1); TOT PROT 5.6 g/dl (6.4-8.2)
[2023-08-09 14:51] LABS: PLATELET ESTIMATE ADEQUATE
[2023-08-09] MEDS ORDERED: AZITHROMYCIN IVPB 500 MG in DEXTROSE 5%-WATER - 250 ML IVPB ONE (16:18)
[2023-08-09] MEDS ORDERED: AZITHROMYCIN 500 MG VIAL IVPB ONE (16:21)
[2023-08-09] MEDS ORDERED: cefTRIAXone SODIUM 1 GM VIAL ONE (16:21)
[2023-08-09] MEDS ORDERED: DOCUSATE SODIUM 100 MG CAPSULE (FP) PO PRN (22:48)
[2023-08-09] MEDS ORDERED: ACETAMINOPHEN 1000 MG/100 ML BAG IVPB PRN (22:51)
[2023-08-10] MEDS: ENALAPRIL MALEATE 10 MG TABLET PO SCH ×3 (02:12→21:33)
[2023-08-10] MEDS ORDERED: MELATONIN 5 MG TABLETS PO PRN (02:49)
[2023-08-10] MEDS ORDERED: FUROSEMIDE 40 MG/4 ML INJECTABLE VIAL IVPUSH ONE (03:46)
[2023-08-10] MEDS: INSULIN ASPART SLIDING SCALE (NOVOLOG) 1 VIAL SQ SCH ×4 (06:41→22:50)
[2023-08-10 07:41] LABS: INR 1.19 (0.83-1.09); PROTHROMBIN TIME (PATIENT) 13.8 SEC (9.7-13.0)
[2023-08-10 07:43] LABS: BASO % 1.1 % (0-2.0); EOS % 1.9 % (0-4.5); HEMATOCRIT 33.9 % (35.4-49); LYMPH % 8.7 % (8-40); MCH 28.1 pg (25.7-33.7); MCHC 32.6 g/dl (32.0-35.9); MEAN CELL VOLUME 86.2 fl (80-96); MONO % 6.8 % (3.8-10.2); NEUT % 81.5 % (42.8-82.8); PLATELET COUNT 262 10^3/uL (134-434); RBC 3.93 M/mm3 (4.00-5.60); RDW 17.8 % (11.9-15.9); WHITE BLOOD COUNT 10.9 K/mm3 (4.0-10.0)
[2023-08-10 07:44] LABS: ACTIVATED PTT 33.8 SECONDS (25.2-36.5)
[2023-08-10 08:00] LABS: POTASSIUM 4.1 mmol/L (3.5-5.1)
[2023-08-10 08:06] LABS: CALCIUM 8.5 mg/dL (8.5-10.1)
[2023-08-10 08:07] LABS: BLOOD UREA NITROGEN 22.1 mg/dL (7-18)
[2023-08-10 08:10] LABS: CREATININE 1.3 mg/dL (0.55-1.3); PHOSPHOROUS 2.8 mg/dL (2.5-4.9)
[2023-08-10] MEDS: TAMSULOSIN HCL 0.4 MG CAP PO SCH (08:29)
[2023-08-10] MEDS: amLODIPine BESYLATE 10 MG TABLET (FP) PO SCH (09:30)
[2023-08-10] MEDS: CEFTRIAXONE 1 GM in DEXTROSE 5%-WATER - 50 ML IVPB SCH (11:33)
[2023-08-10] MEDS: AZITHROMYCIN IVPB 500 MG/250 ML BAG IVPB SCH (12:43)
[2023-08-10] MEDS ORDERED: FENTANYL CITRATE/PF 50 MCG/ML VIAL ONE (13:40)
[2023-08-10] MEDS: FUROSEMIDE 40 MG/4 ML INJECTABLE VIAL IVPUSH SCH (14:10)
[2023-08-10 17:39] LABS: BF WBC & OTHER NUCLEATED CELLS 364 /mm3; BODY FLUID MONOCYTE 7 %
[2023-08-10] MEDS: ASPIRIN COATED 81 MG TABLET.EC PO SCH (21:33)
[2023-08-10] MEDS: RIVAROXABAN 2.5 MG TABLET PO SCH (21:33)
[2023-08-10] MEDS: ROSUVASTATIN CA 10 MG TABLET PO SCH (21:34)
[2023-08-10] MEDS ORDERED: INSULIN (NOVOLOG) ASPART 100 UNITS/ML 10ML VIAL ONE (22:50)
[2023-08-11] MEDS: FUROSEMIDE 40 MG/4 ML INJECTABLE VIAL IVPUSH SCH (05:44)
[2023-08-11] MEDS: INSULIN ASPART SLIDING SCALE (NOVOLOG) 1 VIAL SQ SCH ×4 (06:14→22:01)
[2023-08-11] MEDS: CEFTRIAXONE 1 GM in DEXTROSE 5%-WATER - 50 ML IVPB SCH (10:11)
[2023-08-11] MEDS: RIVAROXABAN 2.5 MG TABLET PO SCH ×2 (10:12→22:00)
[2023-08-11] MEDS: AZITHROMYCIN IVPB 500 MG/250 ML BAG IVPB SCH (10:18)
[2023-08-11] MEDS: CHOLECALCIFEROL (VIT D3) 1,000 UNIT (25 MCG) TABLET PO SCH (10:19)
[2023-08-11] MEDS: ENALAPRIL MALEATE 10 MG TABLET PO SCH ×2 (10:19→21:59)
[2023-08-11] MEDS: amLODIPine BESYLATE 10 MG TABLET (FP) PO SCH (10:22)
[2023-08-11] MEDS ORDERED: INSULIN (NOVOLOG) ASPART 100 UNITS/ML 10ML VIAL ONE (21:15)
[2023-08-11] MEDS: ASPIRIN COATED 81 MG TABLET.EC PO SCH (21:59)
[2023-08-11] MEDS: ROSUVASTATIN CA 10 MG TABLET PO SCH (21:59)
[2023-08-12] MEDS: INSULIN ASPART SLIDING SCALE (NOVOLOG) 1 VIAL SQ SCH ×4 (06:10→21:44)
[2023-08-12 07:42] LABS: BASO % 0.6 % (0-2.0); EOS % 0.6 % (0-4.5); HEMATOCRIT 35.6 % (35.4-49); HEMOGLOBIN 11.9 GM/dL (11.7-16.9); LYMPH % 5.9 % (8-40); MCH 28.6 pg (25.7-33.7); MCHC 33.5 g/dl (32.0-35.9); MEAN CELL VOLUME 85.4 fl (80-96); MEAN PLT VOLUME 7.5 fl (7.5-11.1); MONO % 5.9 % (3.8-10.2); PLATELET COUNT 263 10^3/uL (134-434); RBC 4.17 M/mm3 (4.00-5.60); RDW 17.8 % (11.9-15.9); WHITE BLOOD COUNT 9.3 K/mm3 (4.0-10.0)
[2023-08-12] MEDS: TAMSULOSIN HCL 0.4 MG CAP PO SCH (08:16)
[2023-08-12 09:11] LABS: POTASSIUM 4.2 mmol/L (3.5-5.1)
[2023-08-12 09:32] LABS: ALBUMIN 2.7 g/dl (3.4-5.0); CALCIUM 9.1 mg/dL (8.5-10.1)
[2023-08-12 09:33] LABS: MAGNESIUM 2.3 mg/dL (1.8-2.4)
[2023-08-12 09:35] LABS: PHOSPHOROUS 4.4 mg/dL (2.5-4.9)
[2023-08-12 09:36] LABS: BILIRUBIN,TOTAL 0.8 mg/dL (0.2-1); TOT PROT 6.3 g/dl (6.4-8.2)
[2023-08-12] MEDS: ENALAPRIL MALEATE 10 MG TABLET PO SCH (09:46)
[2023-08-12] MEDS: CHOLECALCIFEROL (VIT D3) 1,000 UNIT (25 MCG) TABLET PO SCH (09:46)
[2023-08-12] MEDS: amLODIPine BESYLATE 10 MG TABLET (FP) PO SCH (09:47)
[2023-08-12] MEDS: CEFTRIAXONE 1 GM in DEXTROSE 5%-WATER - 50 ML IVPB SCH (09:47)
[2023-08-12] MEDS: RIVAROXABAN 2.5 MG TABLET PO SCH ×2 (09:47→21:44)
[2023-08-12] MEDS: AZITHROMYCIN IVPB 500 MG/250 ML BAG IVPB SCH (09:47)
[2023-08-12 15:07] LABS: BODY FLUID ALBUMIN 1.3 g/dL (Not Estab.)
[2023-08-12] MEDS ORDERED: LACTATED RINGERS SOLUTION 1,000 ML/1,000 ML INFUS.BAG IV SCH (16:15)
[2023-08-12] MEDS ORDERED: FLU VACCINE (FLULAVAL) PF 60 MCG/0.5 ML SYRINGE 2023-2024 IM ONE (19:30)
[2023-08-12] MEDS: ROSUVASTATIN CA 10 MG TABLET PO SCH (21:43)
[2023-08-12] MEDS: ASPIRIN COATED 81 MG TABLET.EC PO SCH (21:43)
[2023-08-12] MEDS ORDERED: HEPARIN NA (PORCINE) 5,000 UNITS/ML 1ML VIAL SQ SCH (22:00)
[2023-08-12] MEDS ORDERED: INSULIN (NOVOLOG) ASPART 100 UNITS/ML 10ML VIAL ONE (22:05)
[2023-08-13] MEDS: INSULIN ASPART SLIDING SCALE (NOVOLOG) 1 VIAL SQ SCH ×5 (06:19→22:32)
[2023-08-13 07:41] LABS: HEMATOCRIT 31.8 % (35.4-49); HEMOGLOBIN 10.3 GM/dL (11.7-16.9); MCHC 32.5 g/dl (32.0-35.9); PLATELET COUNT 257 10^3/uL (134-434); RDW 17.5 % (11.9-15.9); WHITE BLOOD COUNT 6.6 K/mm3 (4.0-10.0)
[2023-08-13 07:55] LABS: POTASSIUM 3.8 mmol/L (3.5-5.1)
[2023-08-13 08:07] LABS: BLOOD UREA NITROGEN 44.1 mg/dL (7-18); CALCIUM 8.1 mg/dL (8.5-10.1); MAGNESIUM 2.1 mg/dL (1.8-2.4)
[2023-08-13 08:10] LABS: CREATININE 1.9 mg/dL (0.55-1.3); PHOSPHOROUS 3.8 mg/dL (2.5-4.9)
[2023-08-13] MEDS: AZITHROMYCIN IVPB 500 MG/250 ML BAG IVPB SCH (10:10)
[2023-08-13] MEDS: CHOLECALCIFEROL (VIT D3) 1,000 UNIT (25 MCG) TABLET PO SCH (10:11)
[2023-08-13] MEDS: CEFTRIAXONE 1 GM in DEXTROSE 5%-WATER - 50 ML IVPB SCH (10:11)
[2023-08-13] MEDS: amLODIPine BESYLATE 10 MG TABLET (FP) PO SCH (10:11)
[2023-08-13] MEDS: ENALAPRIL MALEATE 10 MG TABLET PO SCH (10:11)
[2023-08-13] MEDS: RIVAROXABAN 2.5 MG TABLET PO SCH ×2 (10:12→22:32)
[2023-08-13] MEDS ORDERED: ONDANSETRON 4 MG/2 ML VIAL IVPUSH ONE (21:21)
[2023-08-13] MEDS ORDERED: INSULIN (NOVOLOG) ASPART 100 UNITS/ML 10ML VIAL ONE (21:35)
[2023-08-13] MEDS: ASPIRIN COATED 81 MG TABLET.EC PO SCH (22:32)
[2023-08-13] MEDS: ROSUVASTATIN CA 10 MG TABLET PO SCH (22:32)
[2023-08-14] MEDS: INSULIN ASPART SLIDING SCALE (NOVOLOG) 1 VIAL SQ SCH ×4 (06:41→22:44)
[2023-08-14 07:04] LABS: BASO % 0.9 % (0-2.0); EOS % 3.1 % (0-4.5); HEMATOCRIT 32.1 % (35.4-49); HEMOGLOBIN 10.3 GM/dL (11.7-16.9); LYMPH % 11.4 % (8-40); MCH 27.7 pg (25.7-33.7); MCHC 32.3 g/dl (32.0-35.9); MEAN PLT VOLUME 7.1 fl (7.5-11.1); MONO % 8.6 % (3.8-10.2); PLATELET COUNT 271 10^3/uL (134-434); RBC 3.73 M/mm3 (4.00-5.60); RDW 16.9 % (11.9-15.9)
[2023-08-14 07:23] LABS: BLOOD UREA NITROGEN 40.7 mg/dL (7-18); CALCIUM 8.5 mg/dL (8.5-10.1)
[2023-08-14 07:27] LABS: PHOSPHOROUS 3.1 mg/dL (2.5-4.9)
[2023-08-14 07:28] LABS: BILIRUBIN,TOTAL 0.8 mg/dL (0.2-1); TOT PROT 5.2 g/dl (6.4-8.2)
[2023-08-14 08:25] LABS: ALBUMIN 2.1 g/dl (3.4-5.0)
[2023-08-14] MEDS ORDERED: FUROSEMIDE 40 MG/4 ML INJECTABLE VIAL IVPUSH ONE (08:25)
[2023-08-14] MEDS: TAMSULOSIN HCL 0.4 MG CAP PO SCH (09:38)
[2023-08-14] MEDS: amLODIPine BESYLATE 10 MG TABLET (FP) PO SCH (09:38)
[2023-08-14] MEDS: CEFTRIAXONE 1 GM in DEXTROSE 5%-WATER - 50 ML IVPB SCH (09:38)
[2023-08-14] MEDS: CHOLECALCIFEROL (VIT D3) 1,000 UNIT (25 MCG) TABLET PO SCH (09:38)
[2023-08-14] MEDS: ENALAPRIL MALEATE 10 MG TABLET PO SCH (09:38)
[2023-08-14] MEDS: RIVAROXABAN 2.5 MG TABLET PO SCH ×2 (12:09→22:34)
[2023-08-14] MEDS: ROSUVASTATIN CA 10 MG TABLET PO SCH (22:35)
[2023-08-14] MEDS: ASPIRIN COATED 81 MG TABLET.EC PO SCH (22:35)
[2023-08-15] MEDS: INSULIN ASPART SLIDING SCALE (NOVOLOG) 1 VIAL SQ SCH ×4 (06:00→22:35)
[2023-08-15 07:48] LABS: HEMATOCRIT 32.8 % (35.4-49); HEMOGLOBIN 10.9 GM/dL (11.7-16.9); MCH 28.3 pg (25.7-33.7); MCHC 33.4 g/dl (32.0-35.9); MEAN CELL VOLUME 84.6 fl (80-96); PLATELET COUNT 253 10^3/uL (134-434); RBC 3.87 M/mm3 (4.00-5.60); RDW 17.7 % (11.9-15.9); WHITE BLOOD COUNT 6.2 K/mm3 (4.0-10.0)
[2023-08-15 08:10] LABS: POTASSIUM 3.9 mmol/L (3.5-5.1)
[2023-08-15 08:13] LABS: BLOOD UREA NITROGEN 33.9 mg/dL (7-18); CALCIUM 8.1 mg/dL (8.5-10.1)
[2023-08-15 08:16] LABS: CREATININE 1.8 mg/dL (0.55-1.3)
[2023-08-15] MEDS: amLODIPine BESYLATE 10 MG TABLET (FP) PO SCH (10:04)
[2023-08-15] MEDS: CEFTRIAXONE 1 GM in DEXTROSE 5%-WATER - 50 ML IVPB SCH (10:04)
[2023-08-15] MEDS: ENALAPRIL MALEATE 10 MG TABLET PO SCH (10:12)
[2023-08-15] MEDS: RIVAROXABAN 2.5 MG TABLET PO SCH ×2 (10:12→21:56)
[2023-08-15] MEDS: CHOLECALCIFEROL (VIT D3) 1,000 UNIT (25 MCG) TABLET PO SCH (10:52)
[2023-08-15] MEDS ORDERED: INSULIN (NOVOLOG) ASPART 100 UNITS/ML 10ML VIAL ONE ×2 (11:49→22:23)
[2023-08-15] MEDS: ACETAMINOPHEN 325 MG TABLET (FP) PO PRN (19:52)
[2023-08-15] MEDS: ROSUVASTATIN CA 10 MG TABLET PO SCH (21:56)
[2023-08-15] MEDS: ASPIRIN COATED 81 MG TABLET.EC PO SCH (21:56)
[2023-08-16] MEDS: INSULIN ASPART SLIDING SCALE (NOVOLOG) 1 VIAL SQ SCH ×4 (07:05→22:20)
[2023-08-16 08:05] LABS: HEMATOCRIT 33.7 % (35.4-49); HEMOGLOBIN 10.6 GM/dL (11.7-16.9); MCH 27.5 pg (25.7-33.7); MCHC 31.5 g/dl (32.0-35.9); MEAN CELL VOLUME 87.2 fl (80-96); MEAN PLT VOLUME 7.2 fl (7.5-11.1); PLATELET COUNT 266 10^3/uL (134-434); RBC 3.87 M/mm3 (4.00-5.60); RDW 17.3 % (11.9-15.9); WHITE BLOOD COUNT 6.5 K/mm3 (4.0-10.0)
[2023-08-16 08:12] LABS: POTASSIUM 3.8 mmol/L (3.5-5.1)
[2023-08-16 08:18] LABS: CALCIUM 8.4 mg/dL (8.5-10.1)
[2023-08-16 08:19] LABS: ALBUMIN 2.4 g/dl (3.4-5.0); BLOOD UREA NITROGEN 32.8 mg/dL (7-18); MAGNESIUM 2.2 mg/dL (1.8-2.4)
[2023-08-16 08:21] LABS: CREATININE 1.5 mg/dL (0.55-1.3)
[2023-08-16 08:22] LABS: BILIRUBIN,TOTAL 0.4 mg/dL (0.2-1); PHOSPHOROUS 2.9 mg/dL (2.5-4.9); TOT PROT 5.7 g/dl (6.4-8.2)
[2023-08-16] MEDS: CHOLECALCIFEROL (VIT D3) 1,000 UNIT (25 MCG) TABLET PO SCH (09:33)
[2023-08-16] MEDS: TAMSULOSIN HCL 0.4 MG CAP PO SCH (09:33)
[2023-08-16] MEDS: amLODIPine BESYLATE 10 MG TABLET (FP) PO SCH (09:33)
[2023-08-16] MEDS: RIVAROXABAN 2.5 MG TABLET PO SCH ×2 (09:33→21:23)
[2023-08-16] MEDS: CEFTRIAXONE 1 GM in DEXTROSE 5%-WATER - 50 ML IVPB SCH (09:33)
[2023-08-16] MEDS: ENALAPRIL MALEATE 10 MG TABLET PO SCH (09:34)
[2023-08-16] MEDS: ACETAMINOPHEN 325 MG TABLET (FP) PO PRN (11:23)
[2023-08-16] MEDS: ASCORBIC ACID 250 MG TABLET (FP) PO SCH (13:33)
[2023-08-16] MEDS: MULTIVITAMINS THER W-MINERALS COMBO TABLET (FP) PO SCH (13:34)
[2023-08-16] MEDS: ASPIRIN COATED 81 MG TABLET.EC PO SCH (21:23)
[2023-08-16] MEDS: ROSUVASTATIN CA 10 MG TABLET PO SCH (21:23)
[2023-08-16] MEDS ORDERED: INSULIN (NOVOLOG) ASPART 100 UNITS/ML 10ML VIAL ONE (22:20)
[2023-08-17] MEDS: INSULIN ASPART SLIDING SCALE (NOVOLOG) 1 VIAL SQ SCH ×4 (06:03→23:18)
[2023-08-17] MEDS: AMINO ACIDS/PROTEIN HYDROLYS 30 ML LIQUID.PKT PO SCH ×2 (07:46→17:47)
[2023-08-17 07:47] LABS: HEMATOCRIT 33.9 % (35.4-49); HEMOGLOBIN 11.1 GM/dL (11.7-16.9); MCH 27.9 pg (25.7-33.7); MCHC 32.8 g/dl (32.0-35.9); MEAN CELL VOLUME 85.2 fl (80-96); MEAN PLT VOLUME 7.1 fl (7.5-11.1); PLATELET COUNT 269 10^3/uL (134-434); RBC 3.98 M/mm3 (4.00-5.60); RDW 17.3 % (11.9-15.9); WHITE BLOOD COUNT 6.2 K/mm3 (4.0-10.0)
[2023-08-17 08:01] LABS: POTASSIUM 3.6 mmol/L (3.5-5.1)
[2023-08-17 08:03] LABS: ALBUMIN 2.3 g/dl (3.4-5.0); CALCIUM 8.6 mg/dL (8.5-10.1)
[2023-08-17 08:06] LABS: CREATININE 1.4 mg/dL (0.55-1.3)
[2023-08-17 08:08] LABS: BILIRUBIN,TOTAL 0.3 mg/dL (0.2-1); TOT PROT 5.5 g/dl (6.4-8.2)
[2023-08-17] MEDS: ENALAPRIL MALEATE 10 MG TABLET PO SCH (09:39)
[2023-08-17] MEDS: ASCORBIC ACID 250 MG TABLET (FP) PO SCH (09:40)
[2023-08-17] MEDS: MULTIVITAMINS THER W-MINERALS COMBO TABLET (FP) PO SCH (09:40)
[2023-08-17] MEDS: amLODIPine BESYLATE 10 MG TABLET (FP) PO SCH (09:41)
[2023-08-17] MEDS: CHOLECALCIFEROL (VIT D3) 1,000 UNIT (25 MCG) TABLET PO SCH (09:42)
[2023-08-17] MEDS: RIVAROXABAN 2.5 MG TABLET PO SCH ×2 (09:42→23:19)
[2023-08-17] MEDS: CEFTRIAXONE 1 GM in DEXTROSE 5%-WATER - 50 ML IVPB SCH (09:45)
[2023-08-17] MEDS ORDERED: INSULIN (NOVOLOG) ASPART 100 UNITS/ML 10ML VIAL ONE (11:34)
[2023-08-17] MEDS ORDERED: ACETAMINOPHEN 325 MG TABLET (FP) PO PRN (19:14)
[2023-08-17] MEDS ORDERED: DOCUSATE SODIUM 100 MG CAPSULE (FP) PO PRN (19:14)
[2023-08-17] MEDS: ROSUVASTATIN CA 10 MG TABLET PO SCH (23:18)
[2023-08-17] MEDS: ASPIRIN COATED 81 MG TABLET.EC PO SCH (23:18)
[2023-08-18] MEDS: INSULIN ASPART SLIDING SCALE (NOVOLOG) 1 VIAL SQ SCH ×4 (06:40→22:08)
[2023-08-18 09:18] LABS: HEMATOCRIT 35.4 % (35.4-49); HEMOGLOBIN 11.3 GM/dL (11.7-16.9); MCH 27.6 pg (25.7-33.7); MCHC 31.9 g/dl (32.0-35.9); MEAN CELL VOLUME 86.5 fl (80-96); MEAN PLT VOLUME 6.9 fl (7.5-11.1); PLATELET COUNT 295 10^3/uL (134-434); RBC 4.09 M/mm3 (4.00-5.60); RDW 17.3 % (11.9-15.9); WHITE BLOOD COUNT 6.8 K/mm3 (4.0-10.0)
[2023-08-18] MEDS: amLODIPine BESYLATE 10 MG TABLET (FP) PO SCH (09:42)
[2023-08-18] MEDS: CHOLECALCIFEROL (VIT D3) 1,000 UNIT (25 MCG) TABLET PO SCH (09:43)
[2023-08-18] MEDS: ASCORBIC ACID 250 MG TABLET (FP) PO SCH (09:43)
[2023-08-18] MEDS: MULTIVITAMINS THER W-MINERALS COMBO TABLET (FP) PO SCH (09:43)
[2023-08-18] MEDS: RIVAROXABAN 2.5 MG TABLET PO SCH ×2 (09:43→22:07)
[2023-08-18] MEDS: AMINO ACIDS/PROTEIN HYDROLYS 30 ML LIQUID.PKT PO SCH ×2 (09:44→17:06)
[2023-08-18] MEDS: ENALAPRIL MALEATE 10 MG TABLET PO SCH (09:44)
[2023-08-18 10:19] LABS: ALBUMIN 2.3 g/dl (3.4-5.0); BLOOD UREA NITROGEN 35.1 mg/dL (7-18); CREATININE 1.3 mg/dL (0.55-1.3)
[2023-08-18 10:21] LABS: BILIRUBIN,TOTAL 0.4 mg/dL (0.2-1); TOT PROT 5.7 g/dl (6.4-8.2)
[2023-08-18 10:22] LABS: CALCIUM 8.7 mg/dL (8.5-10.1)
[2023-08-18] MEDS: POLYETHYLENE GLYCOL (HEALTHYLAX) 3350 17 GM PACKET PO SCH (15:40)
[2023-08-18] MEDS: TAMSULOSIN HCL 0.4 MG CAP PO SCH (15:40)
[2023-08-18] MEDS: SENNOSIDES 8.8 MG/5 ML SYRUP PO SCH (22:07)
[2023-08-18] MEDS: ROSUVASTATIN CA 10 MG TABLET PO SCH (22:07)
[2023-08-18] MEDS: ASPIRIN COATED 81 MG TABLET.EC PO SCH (22:07)
[2023-08-19] MEDS: INSULIN ASPART SLIDING SCALE (NOVOLOG) 1 VIAL SQ SCH ×4 (06:04→22:03)
[2023-08-19] MEDS: AMINO ACIDS/PROTEIN HYDROLYS 30 ML LIQUID.PKT PO SCH ×2 (08:46→17:59)
[2023-08-19] MEDS: TAMSULOSIN HCL 0.4 MG CAP PO SCH (08:46)
[2023-08-19 09:10] LABS: BASO % 1.1 % (0-2.0); EOS % 4.4 % (0-4.5); HEMATOCRIT 33.2 % (35.4-49); HEMOGLOBIN 10.5 GM/dL (11.7-16.9); LYMPH % 12.9 % (8-40); MCH 27.4 pg (25.7-33.7); MCHC 31.6 g/dl (32.0-35.9); MEAN CELL VOLUME 86.8 fl (80-96); MEAN PLT VOLUME 7.1 fl (7.5-11.1); MONO % 8.1 % (3.8-10.2); NEUT % 73.5 % (42.8-82.8); PLATELET COUNT 272 10^3/uL (134-434); RBC 3.83 M/mm3 (4.00-5.60); RDW 17.8 % (11.9-15.9); WHITE BLOOD COUNT 7.5 K/mm3 (4.0-10.0)
[2023-08-19] MEDS: CHOLECALCIFEROL (VIT D3) 1,000 UNIT (25 MCG) TABLET PO SCH (09:21)
[2023-08-19] MEDS: MULTIVITAMINS THER W-MINERALS COMBO TABLET (FP) PO SCH (09:21)
[2023-08-19] MEDS: amLODIPine BESYLATE 10 MG TABLET (FP) PO SCH (09:21)
[2023-08-19] MEDS: ASCORBIC ACID 250 MG TABLET (FP) PO SCH (09:21)
[2023-08-19] MEDS: POLYETHYLENE GLYCOL (HEALTHYLAX) 3350 17 GM PACKET PO SCH (09:21)
[2023-08-19] MEDS: ENALAPRIL MALEATE 10 MG TABLET PO SCH (09:22)
[2023-08-19] MEDS: RIVAROXABAN 2.5 MG TABLET PO SCH ×2 (09:23→21:56)
[2023-08-19 09:39] LABS: POTASSIUM 4.3 mmol/L (3.5-5.1)
[2023-08-19 09:42] LABS: ALBUMIN 2.2 g/dl (3.4-5.0); CALCIUM 8.4 mg/dL (8.5-10.1)
[2023-08-19 09:43] LABS: BLOOD UREA NITROGEN 46.8 mg/dL (7-18); MAGNESIUM 2.2 mg/dL (1.8-2.4)
[2023-08-19 09:46] LABS: CREATININE 1.4 mg/dL (0.55-1.3); PHOSPHOROUS 3.2 mg/dL (2.5-4.9)
[2023-08-19 09:47] LABS: BILIRUBIN,TOTAL 0.5 mg/dL (0.2-1); TOT PROT 5.2 g/dl (6.4-8.2)
[2023-08-19 15:19] VITALS: BMI 19.2
[2023-08-19] MEDS: ASPIRIN COATED 81 MG TABLET.EC PO SCH (21:55)
[2023-08-19] MEDS: ROSUVASTATIN CA 10 MG TABLET PO SCH (21:55)
[2023-08-19] MEDS: SENNOSIDES 8.8 MG/5 ML SYRUP PO SCH (21:56)
[2023-08-20] MEDS: INSULIN ASPART SLIDING SCALE (NOVOLOG) 1 VIAL SQ SCH ×4 (06:13→21:05)
[2023-08-20] MEDS: TAMSULOSIN HCL 0.4 MG CAP PO SCH (08:37)
[2023-08-20] MEDS: AMINO ACIDS/PROTEIN HYDROLYS 30 ML LIQUID.PKT PO SCH ×2 (08:37→17:01)
[2023-08-20 09:20] LABS: BASO % 1.2 % (0-2.0); EOS % 6.1 % (0-4.5); HEMATOCRIT 31.9 % (35.4-49); LYMPH % 13.8 % (8-40); MCH 27.5 pg (25.7-33.7); MCHC 31.5 g/dl (32.0-35.9); MEAN CELL VOLUME 87.3 fl (80-96); MEAN PLT VOLUME 7.1 fl (7.5-11.1); MONO % 8.1 % (3.8-10.2); NEUT % 70.8 % (42.8-82.8); PLATELET COUNT 254 10^3/uL (134-434); RBC 3.65 M/mm3 (4.00-5.60); RDW 17.7 % (11.9-15.9)
[2023-08-20 09:41] LABS: POTASSIUM 4.3 mmol/L (3.5-5.1)
[2023-08-20] MEDS: MULTIVITAMINS THER W-MINERALS COMBO TABLET (FP) PO SCH (09:49)
[2023-08-20] MEDS: RIVAROXABAN 2.5 MG TABLET PO SCH ×2 (09:49→21:05)
[2023-08-20] MEDS: amLODIPine BESYLATE 10 MG TABLET (FP) PO SCH (09:49)
[2023-08-20] MEDS: POLYETHYLENE GLYCOL (HEALTHYLAX) 3350 17 GM PACKET PO SCH (09:49)
[2023-08-20] MEDS: CHOLECALCIFEROL (VIT D3) 1,000 UNIT (25 MCG) TABLET PO SCH (09:49)
[2023-08-20] MEDS: ENALAPRIL MALEATE 10 MG TABLET PO SCH (09:49)
[2023-08-20] MEDS: ASCORBIC ACID 250 MG TABLET (FP) PO SCH (09:49)
[2023-08-20 09:50] LABS: CALCIUM 8.4 mg/dL (8.5-10.1)
[2023-08-20 09:51] LABS: ALBUMIN 2.1 g/dl (3.4-5.0); BLOOD UREA NITROGEN 53.2 mg/dL (7-18)
[2023-08-20 09:54] LABS: CREATININE 1.4 mg/dL (0.55-1.3)
[2023-08-20 09:55] LABS: BILIRUBIN,TOTAL 0.4 mg/dL (0.2-1)
[2023-08-20 09:56] LABS: TOT PROT 5.2 g/dl (6.4-8.2)
[2023-08-20] MEDS: SENNOSIDES 8.8 MG/5 ML SYRUP PO SCH (21:03)
[2023-08-20] MEDS: ROSUVASTATIN CA 10 MG TABLET PO SCH (21:04)
[2023-08-20] MEDS: ASPIRIN COATED 81 MG TABLET.EC PO SCH (21:04)
[2023-08-21] MEDS: INSULIN ASPART SLIDING SCALE (NOVOLOG) 1 VIAL SQ SCH ×4 (06:24→21:41)
[2023-08-21] MEDS: TAMSULOSIN HCL 0.4 MG CAP PO SCH (08:33)
[2023-08-21] MEDS: AMINO ACIDS/PROTEIN HYDROLYS 30 ML LIQUID.PKT PO SCH ×2 (08:33→17:04)
[2023-08-21 08:44] LABS: BASO % 1.2 % (0-2.0); EOS % 4.6 % (0-4.5); HEMATOCRIT 33.3 % (35.4-49); HEMOGLOBIN 11.1 GM/dL (11.7-16.9); MCH 28.4 pg (25.7-33.7); MCHC 33.4 g/dl (32.0-35.9); MEAN CELL VOLUME 85.1 fl (80-96); MEAN PLT VOLUME 7.2 fl (7.5-11.1); MONO % 7.3 % (3.8-10.2); NEUT % 74.9 % (42.8-82.8); PLATELET COUNT 256 10^3/uL (134-434); RBC 3.92 M/mm3 (4.00-5.60); RDW 17.7 % (11.9-15.9); WHITE BLOOD COUNT 7.2 K/mm3 (4.0-10.0)
[2023-08-21] MEDS: CHOLECALCIFEROL (VIT D3) 1,000 UNIT (25 MCG) TABLET PO SCH (09:20)
[2023-08-21] MEDS: ASCORBIC ACID 250 MG TABLET (FP) PO SCH (09:20)
[2023-08-21] MEDS: MULTIVITAMINS THER W-MINERALS COMBO TABLET (FP) PO SCH (09:20)
[2023-08-21] MEDS: ENALAPRIL MALEATE 10 MG TABLET PO SCH (09:21)
[2023-08-21] MEDS: POLYETHYLENE GLYCOL (HEALTHYLAX) 3350 17 GM PACKET PO SCH (09:21)
[2023-08-21] MEDS: RIVAROXABAN 2.5 MG TABLET PO SCH ×3 (09:21→22:24)
[2023-08-21] MEDS: amLODIPine BESYLATE 10 MG TABLET (FP) PO SCH (09:21)
[2023-08-21 09:28] LABS: ALBUMIN 2.2 g/dl (3.4-5.0); BILIRUBIN,TOTAL 0.6 mg/dL (0.2-1); BLOOD UREA NITROGEN 53.2 mg/dL (7-18); CALCIUM 8.3 mg/dL (8.5-10.1); CREATININE 1.3 mg/dL (0.55-1.3); POTASSIUM 4.2 mmol/L (3.5-5.1); TOT PROT 5.4 g/dl (6.4-8.2)
[2023-08-21] MEDS: ASPIRIN COATED 81 MG TABLET.EC PO SCH ×2 (21:33→21:42)
[2023-08-21] MEDS: ROSUVASTATIN CA 10 MG TABLET PO SCH ×2 (21:33→21:42)
[2023-08-21] MEDS: SENNOSIDES 8.8 MG/5 ML SYRUP PO SCH ×2 (21:33→21:42)
[2023-08-22] MEDS: INSULIN ASPART SLIDING SCALE (NOVOLOG) 1 VIAL SQ SCH ×4 (07:31→22:08)
[2023-08-22] MEDS: TAMSULOSIN HCL 0.4 MG CAP PO SCH (08:18)
[2023-08-22] MEDS: AMINO ACIDS/PROTEIN HYDROLYS 30 ML LIQUID.PKT PO SCH ×2 (08:18→17:32)
[2023-08-22] MEDS: amLODIPine BESYLATE 10 MG TABLET (FP) PO SCH (09:26)
[2023-08-22] MEDS: MULTIVITAMINS THER W-MINERALS COMBO TABLET (FP) PO SCH (09:26)
[2023-08-22] MEDS: ASCORBIC ACID 250 MG TABLET (FP) PO SCH (09:26)
[2023-08-22] MEDS: CHOLECALCIFEROL (VIT D3) 1,000 UNIT (25 MCG) TABLET PO SCH (09:27)
[2023-08-22] MEDS: RIVAROXABAN 2.5 MG TABLET PO SCH ×2 (09:27→21:54)
[2023-08-22] MEDS: ENALAPRIL MALEATE 10 MG TABLET PO SCH (09:27)
[2023-08-22] MEDS: POLYETHYLENE GLYCOL (HEALTHYLAX) 3350 17 GM PACKET PO SCH (09:27)
[2023-08-22 09:35] LABS: BASO % 1.3 % (0-2.0); EOS % 5.5 % (0-4.5); MCH 27.4 pg (25.7-33.7); MCHC 31.6 g/dl (32.0-35.9); MEAN CELL VOLUME 86.6 fl (80-96); MEAN PLT VOLUME 7.3 fl (7.5-11.1); MONO % 8.6 % (3.8-10.2); NEUT % 68.6 % (42.8-82.8); PLATELET COUNT 268 10^3/uL (134-434); RBC 4.04 M/mm3 (4.00-5.60)
[2023-08-22 09:57] LABS: POTASSIUM 4.2 mmol/L (3.5-5.1)
[2023-08-22 10:15] LABS: ALBUMIN 2.4 g/dl (3.4-5.0); BLOOD UREA NITROGEN 52.8 mg/dL (7-18); CALCIUM 8.7 mg/dL (8.5-10.1)
[2023-08-22 10:20] LABS: CREATININE 1.2 mg/dL (0.55-1.3); TOT PROT 5.7 g/dl (6.4-8.2)
[2023-08-22 10:22] LABS: BILIRUBIN,TOTAL 0.5 mg/dL (0.2-1)
[2023-08-22] MEDS: ROSUVASTATIN CA 10 MG TABLET PO SCH (21:55)
[2023-08-22] MEDS: SENNOSIDES 8.8 MG/5 ML SYRUP PO SCH (21:55)
[2023-08-22] MEDS: ASPIRIN COATED 81 MG TABLET.EC PO SCH (21:55)
[2023-08-22] MEDS ORDERED: INSULIN ASPART SLIDING SCALE (NOVOLOG) 1 VIAL SQ ONE (22:08)
[2023-08-23] MEDS: INSULIN ASPART SLIDING SCALE (NOVOLOG) 1 VIAL SQ SCH ×4 (06:11→22:26)
[2023-08-23] MEDS: TAMSULOSIN HCL 0.4 MG CAP PO SCH (08:18)
[2023-08-23] MEDS: AMINO ACIDS/PROTEIN HYDROLYS 30 ML LIQUID.PKT PO SCH ×2 (08:18→16:46)
[2023-08-23 08:59] LABS: BASO % 1.2 % (0-2.0); EOS % 5.4 % (0-4.5); HEMATOCRIT 33.9 % (35.4-49); HEMOGLOBIN 11.3 GM/dL (11.7-16.9); LYMPH % 16.6 % (8-40); MCH 28.4 pg (25.7-33.7); MCHC 33.4 g/dl (32.0-35.9); MEAN CELL VOLUME 84.9 fl (80-96); MONO % 8.5 % (3.8-10.2); NEUT % 68.3 % (42.8-82.8); PLATELET COUNT 262 10^3/uL (134-434); RBC 3.99 M/mm3 (4.00-5.60); RDW 18.1 % (11.9-15.9); WHITE BLOOD COUNT 7.6 K/mm3 (4.0-10.0)
[2023-08-23 09:13] LABS: POTASSIUM 3.9 mmol/L (3.5-5.1)
[2023-08-23 09:15] LABS: ALBUMIN 2.4 g/dl (3.4-5.0); BLOOD UREA NITROGEN 47.2 mg/dL (7-18); CALCIUM 8.1 mg/dL (8.5-10.1); MAGNESIUM 1.9 mg/dL (1.8-2.4)
[2023-08-23 09:18] LABS: CREATININE 1.2 mg/dL (0.55-1.3); PHOSPHOROUS 3.2 mg/dL (2.5-4.9)
[2023-08-23 09:20] LABS: BILIRUBIN,TOTAL 0.4 mg/dL (0.2-1); TOT PROT 5.8 g/dl (6.4-8.2)
[2023-08-23] MEDS: CHOLECALCIFEROL (VIT D3) 1,000 UNIT (25 MCG) TABLET PO SCH (09:47)
[2023-08-23] MEDS: MULTIVITAMINS THER W-MINERALS COMBO TABLET (FP) PO SCH (09:48)
[2023-08-23] MEDS: amLODIPine BESYLATE 10 MG TABLET (FP) PO SCH (09:48)
[2023-08-23] MEDS: ASCORBIC ACID 250 MG TABLET (FP) PO SCH (09:48)
[2023-08-23] MEDS: POLYETHYLENE GLYCOL (HEALTHYLAX) 3350 17 GM PACKET PO SCH (09:49)
[2023-08-23] MEDS: RIVAROXABAN 2.5 MG TABLET PO SCH ×2 (09:50→22:26)
[2023-08-23] MEDS: ENALAPRIL MALEATE 10 MG TABLET PO SCH (09:50)
[2023-08-23] MEDS: ROSUVASTATIN CA 10 MG TABLET PO SCH (22:25)
[2023-08-23] MEDS: SENNOSIDES 8.8 MG/5 ML SYRUP PO SCH (22:26)
[2023-08-23] MEDS: ASPIRIN COATED 81 MG TABLET.EC PO SCH (22:27)
[2023-08-24] MEDS: INSULIN ASPART SLIDING SCALE (NOVOLOG) 1 VIAL SQ SCH ×4 (06:35→21:45)
[2023-08-24] MEDS: POLYETHYLENE GLYCOL (HEALTHYLAX) 3350 17 GM PACKET PO SCH (10:45)
[2023-08-24] MEDS: amLODIPine BESYLATE 10 MG TABLET (FP) PO SCH (10:45)
[2023-08-24] MEDS: AMINO ACIDS/PROTEIN HYDROLYS 30 ML LIQUID.PKT PO SCH ×2 (10:45→17:12)
[2023-08-24] MEDS: CHOLECALCIFEROL (VIT D3) 1,000 UNIT (25 MCG) TABLET PO SCH (10:45)
[2023-08-24] MEDS: TAMSULOSIN HCL 0.4 MG CAP PO SCH (10:46)
[2023-08-24] MEDS: ENALAPRIL MALEATE 10 MG TABLET PO SCH (10:46)
[2023-08-24] MEDS: RIVAROXABAN 2.5 MG TABLET PO SCH ×2 (10:46→21:49)
[2023-08-24] MEDS: ASCORBIC ACID 250 MG TABLET (FP) PO SCH (10:46)
[2023-08-24] MEDS: MULTIVITAMINS THER W-MINERALS COMBO TABLET (FP) PO SCH (10:46)
[2023-08-24 11:47] LABS: BASO % 1.4 % (0-2.0); EOS % 2.1 % (0-4.5); HEMATOCRIT 34.9 % (35.4-49); HEMOGLOBIN 11.6 GM/dL (11.7-16.9); LYMPH % 10.6 % (8-40); MCH 28.3 pg (25.7-33.7); MCHC 33.1 g/dl (32.0-35.9); MEAN CELL VOLUME 85.5 fl (80-96); MEAN PLT VOLUME 7.2 fl (7.5-11.1); MONO % 8.8 % (3.8-10.2); NEUT % 77.1 % (42.8-82.8); PLATELET COUNT 285 10^3/uL (134-434); RBC 4.08 M/mm3 (4.00-5.60); WHITE BLOOD COUNT 8.4 K/mm3 (4.0-10.0)
[2023-08-24 12:15] LABS: CALCIUM 8.7 mg/dL (8.5-10.1)
[2023-08-24 12:16] LABS: ALBUMIN 2.5 g/dl (3.4-5.0); BLOOD UREA NITROGEN 50.5 mg/dL (7-18); MAGNESIUM 2.2 mg/dL (1.8-2.4)
[2023-08-24 12:18] LABS: PHOSPHOROUS 3.3 mg/dL (2.5-4.9)
[2023-08-24 12:19] LABS: CREATININE 1.3 mg/dL (0.55-1.3)
[2023-08-24 12:20] LABS: BILIRUBIN,TOTAL 0.5 mg/dL (0.2-1); TOT PROT 6.1 g/dl (6.4-8.2)
[2023-08-24] MEDS: ROSUVASTATIN CA 10 MG TABLET PO SCH (21:45)
[2023-08-24] MEDS: SENNOSIDES 8.8 MG/5 ML SYRUP PO SCH (21:45)
[2023-08-24] MEDS: ASPIRIN COATED 81 MG TABLET.EC PO SCH (21:45)
[2023-08-25] MEDS: INSULIN ASPART SLIDING SCALE (NOVOLOG) 1 VIAL SQ SCH ×4 (06:05→21:21)
[2023-08-25] MEDS: TAMSULOSIN HCL 0.4 MG CAP PO SCH (08:07)
[2023-08-25] MEDS: AMINO ACIDS/PROTEIN HYDROLYS 30 ML LIQUID.PKT PO SCH ×2 (08:07→16:38)
[2023-08-25 09:18] LABS: BASO % 1.3 % (0-2.0); EOS % 0.5 % (0-4.5); HEMATOCRIT 33.4 % (35.4-49); HEMOGLOBIN 10.4 GM/dL (11.7-16.9); LYMPH % 7.3 % (8-40); MCH 27.2 pg (25.7-33.7); MCHC 31.1 g/dl (32.0-35.9); MEAN CELL VOLUME 87.5 fl (80-96); MEAN PLT VOLUME 7.2 fl (7.5-11.1); NEUT % 80.9 % (42.8-82.8); PLATELET COUNT 281 10^3/uL (134-434); RBC 3.81 M/mm3 (4.00-5.60); RDW 18.1 % (11.9-15.9); WHITE BLOOD COUNT 12.2 K/mm3 (4.0-10.0)
[2023-08-25 09:49] LABS: POTASSIUM 4.2 mmol/L (3.5-5.1)
[2023-08-25 09:52] LABS: BLOOD UREA NITROGEN 52.1 mg/dL (7-18); CALCIUM 8.1 mg/dL (8.5-10.1)
[2023-08-25 09:53] LABS: ALBUMIN 2.2 g/dl (3.4-5.0)
[2023-08-25 09:56] LABS: CREATININE 1.4 mg/dL (0.55-1.3)
[2023-08-25 09:57] LABS: BILIRUBIN,TOTAL 0.8 mg/dL (0.2-1); TOT PROT 5.6 g/dl (6.4-8.2)
[2023-08-25] MEDS: ASCORBIC ACID 250 MG TABLET (FP) PO SCH (10:03)
[2023-08-25] MEDS: ENALAPRIL MALEATE 10 MG TABLET PO SCH (10:03)
[2023-08-25] MEDS: POLYETHYLENE GLYCOL (HEALTHYLAX) 3350 17 GM PACKET PO SCH ×2 (10:03→10:39)
[2023-08-25] MEDS: MULTIVITAMINS THER W-MINERALS COMBO TABLET (FP) PO SCH (10:04)
[2023-08-25] MEDS: RIVAROXABAN 2.5 MG TABLET PO SCH ×2 (10:04→21:21)
[2023-08-25] MEDS: CHOLECALCIFEROL (VIT D3) 1,000 UNIT (25 MCG) TABLET PO SCH (10:04)
[2023-08-25] MEDS: amLODIPine BESYLATE 10 MG TABLET (FP) PO SCH (10:04)
[2023-08-25] MEDS: ASPIRIN COATED 81 MG TABLET.EC PO SCH (21:20)
[2023-08-25] MEDS: ROSUVASTATIN CA 10 MG TABLET PO SCH (21:20)
[2023-08-25] MEDS: SENNOSIDES 8.8 MG/5 ML SYRUP PO SCH (21:21)
[2023-08-26] MEDS: INSULIN ASPART SLIDING SCALE (NOVOLOG) 1 VIAL SQ SCH ×4 (06:19→21:51)
[2023-08-26] MEDS: MULTIVITAMINS THER W-MINERALS COMBO TABLET (FP) PO SCH (09:49)
[2023-08-26] MEDS: ASCORBIC ACID 250 MG TABLET (FP) PO SCH (09:49)
[2023-08-26] MEDS: CHOLECALCIFEROL (VIT D3) 1,000 UNIT (25 MCG) TABLET PO SCH (09:49)
[2023-08-26] MEDS: TAMSULOSIN HCL 0.4 MG CAP PO SCH (09:49)
[2023-08-26] MEDS: RIVAROXABAN 2.5 MG TABLET PO SCH ×2 (09:49→21:31)
[2023-08-26] MEDS: POLYETHYLENE GLYCOL (HEALTHYLAX) 3350 17 GM PACKET PO SCH (09:49)
[2023-08-26] MEDS: amLODIPine BESYLATE 10 MG TABLET (FP) PO SCH (09:49)
[2023-08-26] MEDS: ENALAPRIL MALEATE 10 MG TABLET PO SCH (09:49)
[2023-08-26] MEDS: AMINO ACIDS/PROTEIN HYDROLYS 30 ML LIQUID.PKT PO SCH ×2 (09:49→18:16)
[2023-08-26 10:44] LABS: POTASSIUM 4.3 mmol/L (3.5-5.1)
[2023-08-26 10:46] LABS: CALCIUM 8.6 mg/dL (8.5-10.1)
[2023-08-26 10:47] LABS: ALBUMIN 2.2 g/dl (3.4-5.0); BLOOD UREA NITROGEN 57.8 mg/dL (7-18)
[2023-08-26 10:51] LABS: CREATININE 1.4 mg/dL (0.55-1.3)
[2023-08-26 10:53] LABS: TOT PROT 5.6 g/dl (6.4-8.2)
[2023-08-26 10:55] LABS: BASO % 0.2 % (0-2.0); EOS % 0.1 % (0-4.5); HEMATOCRIT 33.2 % (35.4-49); HEMOGLOBIN 10.3 GM/dL (11.7-16.9); LYMPH % 3.6 % (8-40); MCH 27.2 pg (25.7-33.7); MCHC 31.1 g/dl (32.0-35.9); MEAN CELL VOLUME 87.3 fl (80-96); MEAN PLT VOLUME 7.4 fl (7.5-11.1); MONO % 8.3 % (3.8-10.2); NEUT % 87.8 % (42.8-82.8); PLATELET COUNT 269 10^3/uL (134-434); WHITE BLOOD COUNT 13.7 K/mm3 (4.0-10.0)
[2023-08-26 13:37] LABS: BF WBC & OTHER NUCLEATED CELLS 249 /mm3; BODY FLUID MONOCYTE 1 %
[2023-08-26] MEDS: SENNOSIDES 8.8 MG/5 ML SYRUP PO SCH (21:31)
[2023-08-26] MEDS: ROSUVASTATIN CA 10 MG TABLET PO SCH (21:31)
[2023-08-26] MEDS: ASPIRIN COATED 81 MG TABLET.EC PO SCH (21:31)
[2023-08-27] MEDS: INSULIN ASPART SLIDING SCALE (NOVOLOG) 1 VIAL SQ SCH ×4 (06:17→22:12)
[2023-08-27] MEDS: CHOLECALCIFEROL (VIT D3) 1,000 UNIT (25 MCG) TABLET PO SCH (09:14)
[2023-08-27] MEDS: ASCORBIC ACID 250 MG TABLET (FP) PO SCH (09:14)
[2023-08-27] MEDS: MULTIVITAMINS THER W-MINERALS COMBO TABLET (FP) PO SCH (09:14)
[2023-08-27] MEDS: RIVAROXABAN 2.5 MG TABLET PO SCH ×2 (09:15→22:13)
[2023-08-27] MEDS: POLYETHYLENE GLYCOL (HEALTHYLAX) 3350 17 GM PACKET PO SCH (09:15)
[2023-08-27] MEDS: amLODIPine BESYLATE 10 MG TABLET (FP) PO SCH (09:25)
[2023-08-27] MEDS: TAMSULOSIN HCL 0.4 MG CAP PO SCH (09:25)
[2023-08-27] MEDS: ENALAPRIL MALEATE 10 MG TABLET PO SCH (09:26)
[2023-08-27 09:30] LABS: BASO % 0.3 % (0-2.0); EOS % 0.1 % (0-4.5); HEMATOCRIT 32.3 % (35.4-49); HEMOGLOBIN 10.5 GM/dL (11.7-16.9); LYMPH % 4.6 % (8-40); MCHC 32.6 g/dl (32.0-35.9); MEAN CELL VOLUME 85.9 fl (80-96); MEAN PLT VOLUME 7.4 fl (7.5-11.1); MONO % 7.3 % (3.8-10.2); NEUT % 87.7 % (42.8-82.8); PLATELET COUNT 281 10^3/uL (134-434); RBC 3.76 M/mm3 (4.00-5.60); WHITE BLOOD COUNT 14.3 K/mm3 (4.0-10.0)
[2023-08-27 10:04] LABS: POTASSIUM 4.1 mmol/L (3.5-5.1)
[2023-08-27 10:06] LABS: CALCIUM 8.4 mg/dL (8.5-10.1)
[2023-08-27 10:08] LABS: ALBUMIN 2.1 g/dl (3.4-5.0)
[2023-08-27 10:10] LABS: BLOOD UREA NITROGEN 50.6 mg/dL (7-18)
[2023-08-27 10:11] LABS: CREATININE 1.2 mg/dL (0.55-1.3)
[2023-08-27 10:12] LABS: BILIRUBIN,TOTAL 0.7 mg/dL (0.2-1); TOT PROT 5.6 g/dl (6.4-8.2)
[2023-08-27] MEDS: AMINO ACIDS/PROTEIN HYDROLYS 30 ML LIQUID.PKT PO SCH ×2 (10:46→17:51)
[2023-08-27] MEDS: ROSUVASTATIN CA 10 MG TABLET PO SCH (22:12)
[2023-08-27] MEDS: SENNOSIDES 8.8 MG/5 ML SYRUP PO SCH (22:13)
[2023-08-27] MEDS: ASPIRIN COATED 81 MG TABLET.EC PO SCH (22:13)
[2023-08-28] MEDS ORDERED: INSULIN ASPART SLIDING SCALE (NOVOLOG) 1 VIAL SQ ONE (06:29)
[2023-08-28] MEDS ORDERED: INSULIN (NOVOLOG MIX 70/30) 100 UNITS/ML MDV SQ ONE (06:30)
[2023-08-28] MEDS: INSULIN ASPART SLIDING SCALE (NOVOLOG) 1 VIAL SQ SCH ×4 (07:31→21:40)
[2023-08-28] MEDS: AMINO ACIDS/PROTEIN HYDROLYS 30 ML LIQUID.PKT PO SCH ×2 (09:00→16:31)
[2023-08-28] MEDS: TAMSULOSIN HCL 0.4 MG CAP PO SCH (09:00)
[2023-08-28 09:27] LABS: HEMATOCRIT 32.1 % (35.4-49); HEMOGLOBIN 10.4 GM/dL (11.7-16.9); MCH 28.2 pg (25.7-33.7); MCHC 32.4 g/dl (32.0-35.9); MEAN CELL VOLUME 87.2 fl (80-96); MEAN PLT VOLUME 7.5 fl (7.5-11.1); PLATELET COUNT 276 10^3/uL (134-434); RBC 3.68 M/mm3 (4.00-5.60); RDW 17.6 % (11.9-15.9); WHITE BLOOD COUNT 12.6 K/mm3 (4.0-10.0)
[2023-08-28 09:41] LABS: POTASSIUM 4.4 mmol/L (3.5-5.1)
[2023-08-28] MEDS: POLYETHYLENE GLYCOL (HEALTHYLAX) 3350 17 GM PACKET PO SCH (09:45)
[2023-08-28] MEDS: FUROSEMIDE 20 MG TABLET (FP) PO SCH (09:46)
[2023-08-28] MEDS: ENALAPRIL MALEATE 10 MG TABLET PO SCH (09:47)
[2023-08-28] MEDS: MULTIVITAMINS THER W-MINERALS COMBO TABLET (FP) PO SCH (09:47)
[2023-08-28] MEDS: ASCORBIC ACID 250 MG TABLET (FP) PO SCH (09:47)
[2023-08-28] MEDS: CHOLECALCIFEROL (VIT D3) 1,000 UNIT (25 MCG) TABLET PO SCH (09:47)
[2023-08-28] MEDS: amLODIPine BESYLATE 10 MG TABLET (FP) PO SCH (09:47)
[2023-08-28 09:48] LABS: BLOOD UREA NITROGEN 47.5 mg/dL (7-18); CALCIUM 8.4 mg/dL (8.5-10.1)
[2023-08-28 09:49] LABS: MAGNESIUM 2.3 mg/dL (1.8-2.4)
[2023-08-28] MEDS: RIVAROXABAN 2.5 MG TABLET PO SCH ×2 (09:49→21:31)
[2023-08-28 09:51] LABS: CREATININE 1.3 mg/dL (0.55-1.3); PHOSPHOROUS 2.6 mg/dL (2.5-4.9)
[2023-08-28] MEDS: ROSUVASTATIN CA 10 MG TABLET PO SCH (21:31)
[2023-08-28] MEDS: ASPIRIN COATED 81 MG TABLET.EC PO SCH (21:31)
[2023-08-28] MEDS: MELATONIN 5 MG TABLETS PO PRN (21:31)
[2023-08-28] MEDS: SENNOSIDES 8.8 MG/5 ML SYRUP PO SCH (21:31)
[2023-08-29] MEDS: INSULIN ASPART SLIDING SCALE (NOVOLOG) 1 VIAL SQ SCH ×4 (06:03→21:55)
[2023-08-29] MEDS: amLODIPine BESYLATE 10 MG TABLET (FP) PO SCH (10:34)
[2023-08-29] MEDS: TAMSULOSIN HCL 0.4 MG CAP PO SCH (10:34)
[2023-08-29] MEDS: ASCORBIC ACID 250 MG TABLET (FP) PO SCH (10:34)
[2023-08-29] MEDS: CHOLECALCIFEROL (VIT D3) 1,000 UNIT (25 MCG) TABLET PO SCH (10:34)
[2023-08-29] MEDS: FUROSEMIDE 20 MG TABLET (FP) PO SCH (10:34)
[2023-08-29] MEDS: MULTIVITAMINS THER W-MINERALS COMBO TABLET (FP) PO SCH (10:34)
[2023-08-29] MEDS: POLYETHYLENE GLYCOL (HEALTHYLAX) 3350 17 GM PACKET PO SCH (10:34)
[2023-08-29] MEDS: ENALAPRIL MALEATE 10 MG TABLET PO SCH (10:35)
[2023-08-29] MEDS: RIVAROXABAN 2.5 MG TABLET PO SCH ×2 (10:35→21:53)
[2023-08-29] MEDS: AMINO ACIDS/PROTEIN HYDROLYS 30 ML LIQUID.PKT PO SCH ×2 (10:35→17:12)
[2023-08-29 10:49] LABS: BASO % 0.6 % (0-2.0); EOS % 0.1 % (0-4.5); HEMATOCRIT 30.6 % (35.4-49); LYMPH % 4.5 % (8-40); MCH 28.6 pg (25.7-33.7); MCHC 32.8 g/dl (32.0-35.9); MEAN PLT VOLUME 7.6 fl (7.5-11.1); MONO % 7.7 % (3.8-10.2); NEUT % 87.1 % (42.8-82.8); PLATELET COUNT 283 10^3/uL (134-434); RBC 3.52 M/mm3 (4.00-5.60); RDW 17.8 % (11.9-15.9); WHITE BLOOD COUNT 10.6 K/mm3 (4.0-10.0)
[2023-08-29 11:13] LABS: POTASSIUM 4.3 mmol/L (3.5-5.1)
[2023-08-29 11:19] LABS: BLOOD UREA NITROGEN 49.5 mg/dL (7-18); CALCIUM 8.4 mg/dL (8.5-10.1)
[2023-08-29 11:20] LABS: MAGNESIUM 2.2 mg/dL (1.8-2.4)
[2023-08-29 11:22] LABS: CREATININE 1.4 mg/dL (0.55-1.3); PHOSPHOROUS 3.2 mg/dL (2.5-4.9)
[2023-08-29] MEDS: ROSUVASTATIN CA 10 MG TABLET PO SCH (21:53)
[2023-08-29] MEDS: ASPIRIN COATED 81 MG TABLET.EC PO SCH (21:53)
[2023-08-29] MEDS: SENNOSIDES 8.8 MG/5 ML SYRUP PO SCH (21:54)
[2023-08-30] MEDS: INSULIN ASPART SLIDING SCALE (NOVOLOG) 1 VIAL SQ SCH ×4 (06:16→21:39)
[2023-08-30] MEDS: TAMSULOSIN HCL 0.4 MG CAP PO SCH (08:53)
[2023-08-30] MEDS: AMINO ACIDS/PROTEIN HYDROLYS 30 ML LIQUID.PKT PO SCH ×2 (08:53→17:01)
[2023-08-30 09:43] LABS: BASO % 0.2 % (0-2.0); EOS % 0.2 % (0-4.5); HEMATOCRIT 31.4 % (35.4-49); HEMOGLOBIN 10.4 GM/dL (11.7-16.9); LYMPH % 3.7 % (8-40); MCH 28.6 pg (25.7-33.7); MCHC 33.1 g/dl (32.0-35.9); MEAN CELL VOLUME 86.4 fl (80-96); MEAN PLT VOLUME 7.5 fl (7.5-11.1); MONO % 7.6 % (3.8-10.2); NEUT % 88.3 % (42.8-82.8); PLATELET COUNT 324 10^3/uL (134-434); RBC 3.64 M/mm3 (4.00-5.60); RDW 17.8 % (11.9-15.9); WHITE BLOOD COUNT 10.9 K/mm3 (4.0-10.0)
[2023-08-30 09:58] LABS: POTASSIUM 4.3 mmol/L (3.5-5.1)
[2023-08-30 10:07] LABS: PHOSPHOROUS 3.3 mg/dL (2.5-4.9)
[2023-08-30 10:08] LABS: ALBUMIN 1.9 g/dl (3.4-5.0); BLOOD UREA NITROGEN 50.5 mg/dL (7-18); TOT PROT 5.6 g/dl (6.4-8.2)
[2023-08-30 10:10] LABS: CALCIUM 8.7 mg/dL (8.5-10.1); CREATININE 1.3 mg/dL (0.55-1.3)
[2023-08-30 10:11] LABS: MAGNESIUM 2.2 mg/dL (1.8-2.4)
[2023-08-30] MEDS: MULTIVITAMINS THER W-MINERALS COMBO TABLET (FP) PO SCH (10:20)
[2023-08-30] MEDS: FUROSEMIDE 20 MG TABLET (FP) PO SCH (10:20)
[2023-08-30] MEDS: amLODIPine BESYLATE 10 MG TABLET (FP) PO SCH (10:20)
[2023-08-30] MEDS: CHOLECALCIFEROL (VIT D3) 1,000 UNIT (25 MCG) TABLET PO SCH (10:20)
[2023-08-30] MEDS: POLYETHYLENE GLYCOL (HEALTHYLAX) 3350 17 GM PACKET PO SCH (10:21)
[2023-08-30] MEDS: ENALAPRIL MALEATE 10 MG TABLET PO SCH (10:21)
[2023-08-30] MEDS: ASCORBIC ACID 250 MG TABLET (FP) PO SCH (10:21)
[2023-08-30] MEDS: RIVAROXABAN 2.5 MG TABLET PO SCH ×2 (10:21→21:26)
[2023-08-30] MEDS: SENNOSIDES 8.8 MG/5 ML SYRUP PO SCH (21:25)
[2023-08-30] MEDS: ASPIRIN COATED 81 MG TABLET.EC PO SCH (21:26)
[2023-08-30] MEDS: MELATONIN 5 MG TABLETS PO PRN (21:26)
[2023-08-30] MEDS: ROSUVASTATIN CA 10 MG TABLET PO SCH (21:26)
[2023-08-31] MEDS: INSULIN ASPART SLIDING SCALE (NOVOLOG) 1 VIAL SQ SCH ×2 (06:02→13:11)
[2023-08-31] MEDS: AMINO ACIDS/PROTEIN HYDROLYS 30 ML LIQUID.PKT PO SCH (08:12)
[2023-08-31] MEDS: TAMSULOSIN HCL 0.4 MG CAP PO SCH (08:12)
[2023-08-31] MEDS: POLYETHYLENE GLYCOL (HEALTHYLAX) 3350 17 GM PACKET PO SCH (10:13)
[2023-08-31] MEDS: CHOLECALCIFEROL (VIT D3) 1,000 UNIT (25 MCG) TABLET PO SCH (10:13)
[2023-08-31] MEDS: ASCORBIC ACID 250 MG TABLET (FP) PO SCH (10:13)
[2023-08-31] MEDS: MULTIVITAMINS THER W-MINERALS COMBO TABLET (FP) PO SCH (10:13)
[2023-08-31] MEDS: FUROSEMIDE 20 MG TABLET (FP) PO SCH (10:13)
[2023-08-31] MEDS: amLODIPine BESYLATE 10 MG TABLET (FP) PO SCH (10:13)
[2023-08-31] MEDS: ENALAPRIL MALEATE 10 MG TABLET PO SCH (10:14)
[2023-08-31] MEDS: RIVAROXABAN 2.5 MG TABLET PO SCH (10:15)
[2023-08-31 11:53] VITALS: BP 133/49; PULSE 80; RESP 16; TEMP 98.1
== END 2023-08-31 13:12 | DRG 186 ==
LOC: FER 13:06 → FM/S 16:15 → UNDOADMIN 16:15 → J4W 20:48 → UNDODISIN 08-10 21:06 → J5S 08-16 16:36 → J4W 08-16 16:40 → J5S 08-17 18:55
PROVIDERS: ADMIT Internal Medicine
PROC: 0W9930Z Drainage of Right Pleural Cavity with Drainage Device, Percutaneous Approach (ICD-10-PCS; principal; 2023-08-10)
PROC: 0W9B30Z Drainage of Left Pleural Cavity with Drainage Device, Percutaneous Approach (ICD-10-PCS; 2023-08-13)
PROC: 0W9B30Z Drainage of Left Pleural Cavity with Drainage Device, Percutaneous Approach (ICD-10-PCS; 2023-08-19)
PROC: 0W9B30Z Drainage of Left Pleural Cavity with Drainage Device, Percutaneous Approach (ICD-10-PCS; 2023-08-24)
DX: J90 Pleural effusion, not elsewhere classified (principal); I50.33 Acute on chronic diastolic (congestive) heart failure; J18.9 Pneumonia, unspecified organism; E44.0 Moderate protein-calorie malnutrition; I13.0 Hypertensive heart and chronic kidney disease with heart failure and stage 1 through stage 4 chronic kidney disease, or unspecified chronic kidney disease; I69.354 Hemiplegia and hemiparesis following cerebral infarction affecting left non-dominant side; N17.9 Acute kidney failure, unspecified; J98.19 Other pulmonary collapse; Z68.1 Body mass index [BMI] 19.9 or less, adult; J98.11 Atelectasis; J94.2 Hemothorax; N18.9 Chronic kidney disease, unspecified; E11.51 Type 2 diabetes mellitus with diabetic peripheral angiopathy without gangrene; Z95.820 Peripheral vascular angioplasty status with implants and grafts; F03.90 Unspecified dementia, unspecified severity, without behavioral disturbance, psychotic disturbance, mood disturbance, and anxiety; I25.10 Atherosclerotic heart disease of native coronary artery without angina pectoris; E78.5 Hyperlipidemia, unspecified; E11.22 Type 2 diabetes mellitus with diabetic chronic kidney disease; I70.212 Atherosclerosis of native arteries of extremities with intermittent claudication, left leg; N40.0 Benign prostatic hyperplasia without lower urinary tract symptoms; I48.91 Unspecified atrial fibrillation; R09.02 Hypoxemia
CPT/HCPCS: 0241U-QW; 32557; 36415; 71045-TC-FY; 71046-TC-FY; 71250-TC; 71260-TC; 72100-TC-FY; 73502-TC-LT-FY; 80048; 80053; 82042; 82150; 82465; 82945; 82962; 83615; 83735; 83880; 83986; 84100; 84157; 84478; 84484; 85025; 85027; 85610; 85730; 87040; 87070; 87075; 87102; 87116; 87186; 87205; 87206; 87210; 87635; 87899; 88108; 88305-TC; 90686; 93005; 93010; 93306-TC; 93925-TC; 97116-GP; 97162-GP; 99291; G0008; Q9967